=== PATIENT | female | born 1955 | race Caucasian/White ===

== ENCOUNTER 2021-06-09 11:09 | Outpatient (CLI) | payer BC | END 2021-06-09 11:10 | disposition critical access hospital (66) | LOC: EMS 11:09 | DX: R14.0 Abdominal distension (gaseous) (principal); R11.0 Nausea; R19.7 Diarrhea, unspecified; R42 Dizziness and giddiness; R55 Syncope and collapse | CPT/HCPCS: A0425; A0427 ==

== ENCOUNTER 2021-06-09 11:48 | Emergency (ER) | payer BC ==
[2021-06-09] MEDS ORDERED: SODIUM CHLORIDE 0.9% 1,000 ML IV STA (12:35)
[2021-06-09] MEDS ORDERED: HYDROmorphone 1 MG/ML CARPUJECT IVP STA (12:35)
[2021-06-09] MEDS ORDERED: ONDANSETRON 4 MG/2 ML VIAL IVP STA (12:35)
[2021-06-09 12:36] LABS: BASOPHILS # (AUTO) 0.1 10^3/uL (0.0-0.1); BASOPHILS % (AUTO) 0.7 %; EOSINOPHILS # (AUTO) 0.1 10^3/uL (0.0-0.7); EOSINOPHILS % (AUTO) 1.2 %; HCT - HEMATOCRIT 46.2 % (37.0-47.0); HGB - HEMOGLOBIN 15.7 g/dL (12.0-16.0); LYMPHOCYTES # (AUTO) 2.6 10^3/uL (1.5-3.5); LYMPHOCYTES % (AUTO) 21.9 %; MEAN CORPUSCULAR HEMOGLOBIN 30.3 pg (27.0-31.0); MEAN CORPUSCULAR VOLUME 89.2 fL (81.0-99.0); MEAN PLATELET VOLUME 10.8 fL (7.9-10.8); MONOCYTES # (AUTO) 1.2 10^3/uL (0.0-1.0); MONOCYTES % (AUTO) 9.6 %; NEUTROPHILS # (AUTO) 7.9 10^3/uL (1.5-6.6); PLT - PLATELET COUNT 215 10^3/uL (130-450); RED BLOOD COUNT 5.18 10^6/uL (4.20-5.40); RED CELL DISTRIBUTION WIDTH 12.9 % (12.0-15.0)
--- NOTE | 2021-06-09 12:38 | ED Physician Documentation ---
History of Present Illness - Stated complaint Stated Complaint: GLF/DIZZY - Chief complaint Chief Complaint: Neuro - Additonal information Additional information: 65-year-old female who has a history of diabetes as well as Crohn's disorder p resents the emergency department with 48 hours of uncontrolled diarrhea and vomiting/dry heaving. She reports that her was sick with similar but it lasted only 24 hours. She states that in the last 24 hours she has had 15 watery bowel movements. This morning she was on the toilet and she fainted. Her heard her fall. EMS was summoned and she was noted to be hypotensive in the field with a blood pressure of 55/31. They instituted some crystalloid and her blood pressure improved to 121/70. Her blood sugar was 101. Patient denies any recent antibiotics. Her output has been nonbloody. This does not feel like a typical Crohn's flare. Meds: Humira, Ozempic, Lantus, lispro, prednisone (burst for cervical radiculopathy), azathioprine Review of Systems Constitutional: denies: Fever, Chills Eyes: reports: Reviewed and negative Nose: reports: Reviewed and negative Throat: reports: Reviewed and negative Cardiac: reports: Reviewed and negative Respiratory: reports: Reviewed and negative GI: reports: Abdominal Pain, Nausea, Vomiting, Diarrhea. denies: Hematemesis, Bloody / black stool : reports: Reviewed and negative Skin: reports: Reviewed and negative Musculoskeletal: reports: Reviewed and negative Neurologic: reports: Reviewed and negative Psychiatric: reports: Reviewed and negative PD PAST MEDICAL HISTORY - Present Medications Home Medications: Ambulatory Orders Medication Instructions Recorded Confirmed Ciprofloxacin HCl 1 tablet PO BID 7 Days #14 tablet 06/09/21 metroNIDAZOLE [Flagyl] 500 mg PO BID 7 Days #14 tablet 06/09/21 - Allergies Allergies/Adverse Reactions: Allergies Allergy/AdvReac Type Severity Reaction Status Date / Time metformin Allergy Unknown Verified 06/09/21 11:56 Penicillins Allergy Unknown Verified 06/09/21 11:56 PD ED PE EXPANDED - General General: Alert, No acute distress - Cardiac Cardiac: Regular Rate, Radial strong equal, Pedal strong equal, Cap refill < 2 sec. No: Murmur Present - Respiratory Respiratory: Clear to ausultation noemi. No: Distress, Labored - Abdomen Abdomen: Normal Bowel sounds (hyperactive). No: Tender to palpation, Rebound, Guarding - Back Back: Normal exam. No: Soft tissue tenderness, CVA TTP right, CVA TTP left - Derm Derm: Normal color, Warm and dry. No: Rash - Extremities Extremities: Normal. No: Deformity, Tenderness - Neuro Neuro: Alert and Oriented X 3, CNII-XII intact - GCS Eye Opening: Spontaneous Motor: Obeys Commands Verbal: Oriented Total: 15 Results - Vitals Vitals: Vital Signs - 24 hr 06/09/21 06/09/21 06/09/21 11:56 12:09 12:30 Temperature 36.1 C L Heart Rate 69 74 74 Respiratory 16 18 12 Rate Blood Pressure 137/76 H 125/69 133/72 H O2 Saturation 99 98 100 06/09/21 06/09/21 06/09/21 13:30 14:00 14:30 Temperature Heart Rate 88 90 76 Respiratory 17 18 16 Rate Blood Pressure 160/73 H 155/74 H 143/69 H O2 Saturation 100 100 99 06/09/21 15:00 Temperature 36.6 C Heart Rate 81 Respiratory 18 Rate Blood Pressure 141/61 H O2 Saturation 99 Oxygen O2 Source Room air - EKG (time done) 1209 Rate: Rate (enter#) (71) Rhythm: NSR [place]: Normal Intervals: Normal RI, Prolonged QT QRS: LVH Ischemia: ST elevation c/w repol Compare to prior EKG: Old EKG unavailable Computer interpretation: Agree with computer - Labs Labs: Laboratory Tests 06/09/21 06/09/21 06/09/21 12:22 12:22 12:22 WBC 12.0 H RBC 5.18 Hgb 15.7 Hct 46.2 MCV 89.2 MCH 30.3 MCHC 34.0 RDW 12.9 Plt Count 215 MPV 10.8 Neut # (Auto) 7.9 H Lymph # (Auto) 2.6 [place] # (Auto) 1.2 H Eos # (Auto) 0.1 Baso # (Auto) 0.1 Absolute Nucleated RBC 0.00 Nucleated RBC % 0.0 Sodium 136 Potassium 4.4 Chloride 101 Carbon Dioxide 25 Anion Gap 10.0 BUN 18 Creatinine 0.7 Estimated GFR (MDRD) 84 L Glucose 161 H Lactic Acid Calcium 9.5 Total Bilirubin 0.8 AST 42 ALT 51 Alkaline Phosphatase 58 Troponin I High Sens 7.1 Total Protein 7.1 Albumin 4.0 Globulin 3.1 Albumin/Globulin Ratio 1.3 Lipase 39 Urine Color Urine Clarity Urine pH Ur Specific [place] Urine Protein Urine Glucose (UA) Urine Ketones Urine Occult Blood Urine Nitrite Urine Bilirubin Urine Urobilinogen Ur Leukocyte Esterase Urine RBC Urine WBC Ur Squamous Epith Cells Urine Bacteria Ur Microscopic Review Urine Culture Comments Stl C. diff Tox B Gene 06/09/21 06/09/21 06/09/21 12:36 12:51 12:51 WBC RBC Hgb Hct MCV MCH MCHC RDW Plt Count MPV Neut # (Auto) Lymph # (Auto) [place] # (Auto) Eos # (Auto) Baso # (Auto) Absolute Nucleated RBC Nucleated RBC % Sodium Potassium Chloride Carbon Dioxide Anion Gap BUN Creatinine Estimated GFR (MDRD) Glucose Lactic Acid 2.5 H Calcium Total Bilirubin AST ALT Alkaline Phosphatase Troponin I High Sens Total Protein Albumin Globulin Albumin/Globulin Ratio Lipase Urine Color YELLOW Urine Clarity CLEAR Urine pH 5.0 Ur Specific [place] >=1.030 H Urine Protein 30 H Urine Glucose (UA) >=1000 H Urine Ketones NEGATIVE Urine Occult Blood NEGATIVE Urine Nitrite NEGATIVE Urine Bilirubin NEGATIVE Urine Urobilinogen 0.2 (NORMAL) Ur Leukocyte Esterase NEGATIVE Urine RBC 6-10 H Urine WBC 4-5 Ur Squamous Epith Cells FEW Squamous Urine Bacteria Rare Ur Microscopic Review INDICATED Urine Culture Comments NOT INDICATED Stl C. diff Tox B Gene NEGATIVE 06/09/21 14:58 WBC RBC Hgb Hct MCV MCH MCHC RDW Plt Count MPV Neut # (Auto) Lymph # (Auto) [place] # (Auto) Eos # (Auto) Baso # (Auto) Absolute Nucleated RBC Nucleated RBC % Sodium Potassium Chloride Carbon Dioxide Anion Gap BUN Creatinine Estimated GFR (MDRD) Glucose Lactic Acid 2.4 H Calcium Total Bilirubin AST ALT Alkaline Phosphatase Troponin I High Sens Total Protein Albumin Globulin Albumin/Globulin Ratio Lipase Urine Color Urine Clarity Urine pH Ur Specific [place] Urine Protein Urine Glucose (UA) Urine Ketones Urine Occult Blood Urine Nitrite Urine Bilirubin Urine Urobilinogen Ur Leukocyte Esterase Urine RBC Urine WBC Ur Squamous Epith Cells Urine Bacteria Ur Microscopic Review Urine Culture Comments Stl C. diff Tox B Gene - Rads (name of study) CT abd/pelvis Radiology: Final report received (Mild colonic wall thickening involving the distal sigmoid colon suggesting mild segmental colitis. Etiology may be infection or inflammatory bowel disease. Terminal ileum is grossly normal. Hepatic steatosis.) PD MEDICAL DECISION MAKING - ED course Complexity details: reviewed old records, reviewed results, re-evaluated patient, considered differential, d/w patient ED course: 65-year-old female presents the emergency department with 2 days of uncontrolled vomiting and diarrhea. Her had been sick with similar but improved. Patient has had an estimated 15 watery bowel movements over the last 24 hours. This morning she was on the toilet and fainted. When EMS arrived she had a blood pressure in the 50s over 30s but after 200 mils of fluids blood pressure improved to 120/70. Her screening EKG is sinus rhythm high-sensitivity troponin is negative. On presentation to the ER she appeared well was not tachycardic or hypotensive. She is afebrile. Screening labs show a very mild leukocytosis of 12,000. Her electrolytes are nonactionable. Her initial lactate was 2.5. She was repleted with 2 L of IV fluids here in the emergency department she was then tolerating sips of clear liquids as well as ambulating in the underwood with ease. On reexam she had no abdominal tenderness. Her stool C. difficile is negative A CT of her abdomen suggest an inflammatory versus an infectious colitis. Patient will be started on Augmentin. I discussed the possibility of observation admission with mildly elevated lactate however patient prefers to be discharged home if she is feeling improved. Emergent return precautions were discussed. Departure - Departure Disposition: 01 Home, Self Care Clinical Impression: Nausea vomiting and diarrhea, Colitis Condition: Stable Record reviewed to determine appropriate education?: Yes Instructions: ED Gastroenteritis Report Pend Follow-Up: Armando Ellison MD [Primary Care Provider] - Prescriptions: Ciprofloxacin HCl 1 tablet PO BID 7 Days #14 tablet metroNIDAZOLE [Flagyl] 500 mg PO BID 7 Days #14 tablet Comments: Rosy you are seen in the ER today because you have had 48 hours of uncontrolled vomiting and diarrhea. Here in the emergency department you were given 2 L of IV fluids as well as some nausea medicine. You are now able to keep liquids down. The CT scan of your belly suggest that you have some inflammatory or infectious inflammation of your intestines. With your history of Crohn's disease I would like you to start the prescription for the Flagyl as well as the Cipro. Take twice daily for the next week. You would also benefit from taking a probiotic or eating a couple yogurt daily. If at any point you feel that your symptoms are worsening, You have suddenly severe abdominal pain, develop black or bloody stools, or have any fainting episodes and please return immediately to the ER. I do recommend over the next 24 hours that you take small sips of clear liquids such as broth, Pedialyte, water or juice. Then slowly advance your diet with bananas rice applesauce and toast. We did check your stool today for type of bacteria called C. difficile and reassuringly your negative. Please discuss this ED visit with your primary care doctor.
[2021-06-09 12:47] LABS: ALBUMIN/GLOBULIN RATIO 1.3 (1.0-2.2); BILIRUBIN,TOTAL 0.8 mg/dL (0.2-1.0); CALCIUM 9.5 mg/dL (8.5-10.3); CREATININE 0.7 mg/dL (0.4-1.0); POTASSIUM 4.4 mmol/L (3.5-5.0); TOTAL PROTEIN 7.1 g/dL (6.7-8.2)
[2021-06-09 13:03] LABS: BILIRUBIN,URINE NEGATIVE (NEGATIVE); GLUCOSE, URINE (UA) >=1000 mg/dL (NEGATIVE); KETONES,URINE (UA) NEGATIVE (NEGATIVE); LEUKOCYTE ESTERASE, URINE NEGATIVE (NEGATIVE); NITRITE,URINE NEGATIVE (NEGATIVE); OCCULT BLOOD,URINE NEGATIVE (NEGATIVE); PROTEIN,URINE 30 mg/dL (NEGATIVE); UROBILINOGEN,URINE 0.2 (NORMAL) E.U./dL (NORMAL)
[2021-06-09] MEDS ORDERED: IOPAMIDOL-300 100 ML VIAL ONE (13:12)
[2021-06-09 13:24] LABS: CLARITY,URINE CLEAR (CLEAR)
[2021-06-09 13:25] LABS: BACTERIA,URINE Rare /HPF (None Seen); SQUAMOUS EPITHELIAL CELL,UR FEW Squamous (<= Few)
[2021-06-09] MEDS ORDERED: IOPAMIDOL-300 100 ML VIAL IVP ONE (13:52)
--- NOTE | 2021-06-09 14:36 | CT Report ---
PROCEDURE: Abdomen/Pelvis W INDICATIONS: Uncontrolled Diarrhea, history of Crohn's CONTRAST: IV CONTRAST: Isovue 300 ml: 100 PO CONTRAST: Isovue 300 ml50 TECHNIQUE: After the administration of intravenous contrast, 5 mm thick sections acquired from the diaphragms to the symphysis. 5 mm thick coronal and sagittal reformats were acquired. For radiation dose reducti on, the following was used: automated exposure control, adjustment of mA and/or kV according to bud ent size. COMPARISON: None. FINDINGS: Image quality: Excellent. ABDOMEN: Lung bases: Lung bases are clear. Heart size is normal. Solid organs: Liver and spleen are normal in size and enhancement. Hepatic steatosis. Gallbladder i s normal. Biliary system is non dilated. Pancreas enhances normally. No adrenal nodules. Kidneys demonstrate normal size and enhancement. There multiple low-density cortical nodules in kidneys bila terally, most likely renal cysts. No renal stones or hydronephrosis. Peritoneum and bowel: Bowel loops demonstrate normal caliber. Mild short segment wall thickening inv olving the distal sigmoid colon. Terminal ileum is normal. Small bowel loops are normal in thickness. No free fluid or air. Nodes and vessels: No retroperitoneal or mesenteric adenopathy by size criteria. Aorta and inferior vena cava are normal in size. Atherosclerotic calcifications. Miscellaneous: No ventral hernias. PELVIS: Genitourinary: Bladder wall thickness is normal. Uterus is absent. Ovaries are not visualized. No p athological free fluid in the cul-de-sac or adnexa. Miscellaneous: No inguinal hernias or adenopathy. Bones: There is grade 1 anterolisthesis of L4 on L5. Moderate degenerative disc and facet disease in lumbar spine. No suspicious bony lesions. No vertebral body compression fractures. IMPRESSION: 1. Mild colonic wall thickening involving the distal sigmoid colon suggesting mild segmental colitis. Etiology may be infection or inflammatory bowel disease. Terminal ileum is grossly normal. 2. Hepatic steatosis. Reviewed by: Maday Reaves MD on 06/09/2021 2:34 PM PST Approved by: Maday Reaves MD on 06/09/2021 2:34 PM PST Station ID: [id number]
[2021-06-09 16:09] VITALS: BP 134/83
== END 2021-06-09 16:27 | disposition home or self-care (01) ==
LOC: EDUNIT# → ED 11:48
DX: K52.9 Noninfective gastroenteritis and colitis, unspecified (principal); K50.90 Crohn's disease, unspecified, without complications
CPT/HCPCS: 36415; 74177; 80053; 81001; 81599; 83605; 83690; 84484; 85025; 87493; 93005; 96360; 99284; Q9967; 81003; 87045; 87046; 87086

== ENCOUNTER 2021-06-24 14:13 | Outpatient (CLI) | payer BC | END 2021-06-24 14:14 | disposition home or self-care (01) | LOC: LAB 14:13 | PROVIDERS: ATTEND Internal Medicine | DX: R19.7 Diarrhea, unspecified (principal) | CPT/HCPCS: 83993; 87493 ==

== ENCOUNTER 2023-11-20 16:50 | Outpatient (CLI) | payer MEDICARE, OTHER | END 2023-11-20 23:59 | disposition critical access hospital (66) | LOC: EMS 16:50 | DX: R11.2 Nausea with vomiting, unspecified (principal); R10.84 Generalized abdominal pain; M54.9 Dorsalgia, unspecified; R23.1 Pallor; R61 Generalized hyperhidrosis; R10.817 Generalized abdominal tenderness; R09.89 Other specified symptoms and signs involving the circulatory and respiratory systems | CPT/HCPCS: A0425; A0427 ==

== ENCOUNTER 2023-11-20 17:28 | Inpatient (IN) | payer BC, MEDICARE, OTHER ==
--- NOTE | 2023-11-20 17:38 | ED Physician Documentation ---
PD HPI NVD - Stated complaint Stated Complaint: N/V/LOW BACK PX - History obtained from History obtained from: Patient - History of Present Illness Timing - onset: How many hours ago (06/22), Today Timing - duration: Hours (06/22) Timing - details: Abrupt onset (She states she felt okay yesterday and this morning. 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 It was not that hot she did not feel hypothermic. Soon after arriving home she started abruptly having nausea and vomiting general weakness and mild abd cramps.), Still present Associated symptoms: Fever, Loss of appetite Contributing factors: No: Sick contact, Bad food Improved by: No: Vomiting Similar symptoms before: Has not had sx before Recently seen: Not recently seen Review of Systems Constitutional: reports: Fever Nose: denies: Rhinorrhea / runny nose, Congestion Throat: denies: Sore throat Respiratory: denies: Cough GI: reports: Abdominal Pain, Nausea, Vomiting. denies: Diarrhea Neurologic: denies: Altered mental status, Headache PD PAST MEDICAL HISTORY - Past Medical History Endocrine/Autoimmune: None GI: Crohn's disease DATA CONTROL CLERK: None : None - Present Medications Home Medications: Ambulatory Orders Medication Instructions Recorded Confirmed Adalimumab [Humira Pen] 40 mg SUBQ Q14D 11/20/23 11/20/23 Famotidine [Pepcid] 20 mg PO DAILY 11/20/23 11/20/23 Gabapentin [Neurontin] 100 mg PO BID 11/20/23 11/20/23 Gabapentin [Neurontin] 300 mg PO HS 11/20/23 11/20/23 Lisinopril [Zestril] 40 mg PO DAILY 11/20/23 11/20/23 Pravastatin [Pravachol] 40 mg PO DAILY 11/20/23 11/20/23 Tizanidine HCl 2 mg PO HS PRN 11/20/23 11/20/23 oxyBUTYnin chloride [Oxybutynin 5 mg PO DAILY 11/20/23 11/20/23 Chloride] - Allergies Allergies/Adverse Reactions: Allergies Allergy/AdvReac Type Severity Reaction Status Date / Time metformin Allergy Unknown Verified 11/20/23 17:30 Penicillins Allergy Unknown Verified 11/20/23 17:30 prednisone Allergy Unknown Verified 11/20/23 17:30 PD ED PE NORMAL - Vitals Vital signs reviewed: Yes - General General: Alert and oriented X 3, Well developed/nourished, Other (apperas uncomfortable. Holding emesis bag, dry heaving.) - Neck Neck: Supple, no meningeal sign, No adenopathy - Abdomen Abdomen: Soft, Non distended, No organomegaly, Other (tender epigastric area without percussion nor rebound tenderness. ). No: Normal bowel sounds (decreased) - Derm Derm: Normal color, Warm and dry, No rash - Neuro Neuro: Alert and oriented X 3 Results - Vitals Vitals: Vital Signs - 24 hr 11/20/23 11/20/23 11/20/23 17:33 18:16 18:31 Temperature 39.0 C H 38.5 C H Heart Rate 114 H 115 H Respiratory 26 H 29 H Rate Blood Pressure 161/75 H 161/75 H O2 Saturation 90 L 91 L 11/20/23 11/20/23 11/20/23 18:57 19:30 20:30 Temperature 38.5 C H 37.4 C Heart Rate 116 H 110 H 101 H Respiratory 26 H 22 20 Rate Blood Pressure 115/60 165/74 H 129/61 O2 Saturation 93 95 95 Oxygen O2 Source Room air - Labs Labs: Laboratory Tests 11/20/23 11/20/23 11/20/23 17:45 18:02 18:02 WBC 9.1 RBC 4.77 Hgb 14.1 Hct 41.9 MCV 87.8 MCH 29.6 MCHC 33.7 RDW 12.5 Plt Count 152 MPV 11.1 H Neut # (Auto) 8.1 H Lymph # (Auto) 0.6 L [place] # (Auto) 0.3 Eos # (Auto) 0.0 Baso # (Auto) 0.0 Absolute Nucleated RBC 0.00 Nucleated RBC % 0.0 Sodium 136 Potassium 4.0 Chloride 103 Carbon Dioxide 22 Anion Gap 11.0 BUN 19 Creatinine 0.6 Estimated GFR (MDRD) 100 Glucose 254 H Lactic Acid Calcium 9.7 Magnesium 1.3 L Total Bilirubin 0.7 AST 51 H ALT 64 H Alkaline Phosphatase 126 H C-Reactive Protein 3.2 H Total Protein 7.2 Albumin 4.3 Globulin 2.9 Albumin/Globulin Ratio 1.5 Lipase 10 L Urine Color YELLOW Urine Clarity CLOUDY Urine pH 6.0 Ur Specific [place] 1.015 Urine Protein 30 H Urine Glucose (UA) >=1000 H Urine Ketones TRACE Urine Occult Blood TRACE-LYSE Urine Nitrite POSITIVE H Urine Bilirubin NEGATIVE Urine Urobilinogen 0.2 (NORMAL) Ur Leukocyte Esterase NEGATIVE Urine RBC 0-5 Urine WBC 6-10 H Ur Squamous Epith Cells FEW Squamous Urine Bacteria Many H Ur Microscopic Review INDICATED Urine Culture Comments INDICATED Nasal Adenovirus (PCR) Nasal B. parapertussis DNA (PCR) Nasal Coronavir 229E PCR Nasal Coronavir HKU1 PCR Nasal Coronavir NL63 PCR Nasal Coronavir OC43 PCR Nasal Enterovir/Rhinovir PCR Nasal Influenza B PCR Nasal Influenza A PCR Nasal Parainfluen 1 PCR Nasal Parainfluen 2 PCR Nasal Parainfluen 3 PCR Nasal Parainfluen 4 PCR Nasal RSV (PCR) Nasal B.pertussis DNA PCR Nasal C.pneumoniae (PCR) Ze Human Metapneumo PCR Nasal M.pneumoniae (PCR) Nasal SARS-CoV-2 (PCR) 11/20/23 11/20/23 18:02 18:10 WBC RBC Hgb Hct MCV MCH MCHC RDW Plt Count MPV Neut # (Auto) Lymph # (Auto) [place] # (Auto) Eos # (Auto) Baso # (Auto) Absolute Nucleated RBC Nucleated RBC % Sodium Potassium Chloride Carbon Dioxide Anion Gap BUN Creatinine Estimated GFR (MDRD) Glucose Lactic Acid 3.4 H* Calcium Magnesium Total Bilirubin AST ALT Alkaline Phosphatase C-Reactive Protein Total Protein Albumin Globulin Albumin/Globulin Ratio Lipase Urine Color Urine Clarity Urine pH Ur Specific [place] Urine Protein Urine Glucose (UA) Urine Ketones Urine Occult Blood Urine Nitrite Urine Bilirubin Urine Urobilinogen Ur Leukocyte Esterase Urine RBC Urine WBC Ur Squamous Epith Cells Urine Bacteria Ur Microscopic Review Urine Culture Comments Nasal Adenovirus (PCR) NOT DETECTED Nasal B. parapertussis DNA (PCR) NOT DETECTED Nasal Coronavir 229E PCR NOT DETECTED Nasal Coronavir HKU1 PCR NOT DETECTED Nasal Coronavir NL63 PCR NOT DETECTED Nasal Coronavir OC43 PCR NOT DETECTED Nasal Enterovir/Rhinovir PCR NOT DETECTED Nasal Influenza B PCR NOT DETECTED Nasal Influenza A PCR NOT DETECTED Nasal Parainfluen 1 PCR NOT DETECTED Nasal Parainfluen 2 PCR NOT DETECTED Nasal Parainfluen 3 PCR NOT DETECTED Nasal Parainfluen 4 PCR NOT DETECTED Nasal RSV (PCR) NOT DETECTED Nasal B.pertussis DNA PCR NOT DETECTED Nasal C.pneumoniae (PCR) NOT DETECTED Ze Human Metapneumo PCR NOT DETECTED Nasal M.pneumoniae (PCR) NOT DETECTED Nasal SARS-CoV-2 (PCR) NOT DETECTED PD Medical Decision Making - ED course Complexity details: considered differential, d/w patient ED course: Quite abrupt onset of malaise, body aches, fever just at 4:00 this afternoon. It felt okay earlier in the day. Is having nausea and vomiting. Denies abdominal pain per se. Having urgency now for possibly diarrhea. Had not noticed any UTI symptoms though was having some frequency the last couple of days but no dysuria. No contact with flu or COVID per se. Not having upper respiratory symptoms. She does appear well sick promptly today. We started an IV and were given medications for fever and pains as well as nausea. Her temperature was 39.0. Preliminary labs are showing a normal white count but she does have an elevated lactate of 3.4. Urinalysis is showing signs of urinary tract infection and that could account for nausea fever and back pain. Flu test is still pending. Am getting a chest x-ray to look for other sources of infection. She was not alexander ving localized abdominal tenderness but did have some upper crampiness. Potentially could consider CT of the abdomen. At this point I would await the respiratory viral panel test. If positive that may account for symptoms better. If negative then CT abdomen may be appropriate to look for obstructive patterns or stones in the setting of UTI with such high impromptu fever.
[2023-11-20 17:54] LABS: BILIRUBIN,URINE NEGATIVE (NEGATIVE); GLUCOSE, URINE (UA) >=1000 mg/dL (NEGATIVE); KETONES,URINE (UA) TRACE mg/dL (NEGATIVE); LEUKOCYTE ESTERASE, URINE NEGATIVE (NEGATIVE); NITRITE,URINE POSITIVE (NEGATIVE); OCCULT BLOOD,URINE TRACE-LYSE (NEGATIVE); PROTEIN,URINE 30 mg/dL (NEGATIVE); UROBILINOGEN,URINE 0.2 (NORMAL) E.U./dL (NORMAL)
[2023-11-20 17:57] LABS: CLARITY,URINE CLOUDY (CLEAR)
[2023-11-20 17:58] LABS: BACTERIA,URINE Many /HPF (None Seen); RBC,URINE 0-5 /HPF (0-5); SQUAMOUS EPITHELIAL CELL,UR FEW Squamous (<= Few)
[2023-11-20] MEDS: ACETAMINOPHEN 500 MG TABLET PO STA (18:01)
[2023-11-20] MEDS: SODIUM CHLORIDE 0.9% 1,000 ML IV STA ×2 (18:02→18:54)
[2023-11-20] MEDS: ONDANSETRON 4 MG/2 ML VIAL IVP STA (18:02)
[2023-11-20] MEDS: KETOROLAC 15 MG/ML VIAL IVP STA (18:03)
[2023-11-20] MEDS: cefTRIAXone 1 GM VIAL IVP STA (18:13)
[2023-11-20 18:16] LABS: BASOPHILS % (AUTO) 0.3 %; EOSINOPHILS % (AUTO) 0.2 %; HCT - HEMATOCRIT 41.9 % (37.0-47.0); HGB - HEMOGLOBIN 14.1 g/dL (12.0-16.0); LYMPHOCYTES # (AUTO) 0.6 10^3/uL (1.5-3.5); LYMPHOCYTES % (AUTO) 6.9 %; MEAN CORPUSCULAR HEMOGLOBIN 29.6 pg (27.0-31.0); MEAN CORPUSCULAR HGB CONC 33.7 g/dL (32.0-36.0); MEAN CORPUSCULAR VOLUME 87.8 fL (81.0-99.0); MEAN PLATELET VOLUME 11.1 fL (7.9-10.8); MONOCYTES # (AUTO) 0.3 10^3/uL (0.0-1.0); MONOCYTES % (AUTO) 3.6 %; NEUTROPHILS # (AUTO) 8.1 10^3/uL (1.5-6.6); NEUTROPHILS % (AUTO) 88.7 %; PLT - PLATELET COUNT 152 10^3/uL (130-450); RED BLOOD COUNT 4.77 10^6/uL (4.20-5.40); RED CELL DISTRIBUTION WIDTH 12.5 % (12.0-15.0); WHITE BLOOD COUNT 9.1 x10^3/uL (4.8-10.8)
[2023-11-20 18:31] LABS: ALBUMIN 4.3 g/dL (3.2-5.5); ALBUMIN/GLOBULIN RATIO 1.5 (1.0-2.2); BILIRUBIN,TOTAL 0.7 mg/dL (0.2-1.0); CALCIUM 9.7 mg/dL (8.5-10.3); CREATININE 0.6 mg/dL (0.6-1.3); CRP - C-REACTIVE PROTEIN 3.2 mg/dL (<0.5); MAGNESIUM 1.3 mg/dL (1.7-2.3); TOTAL PROTEIN 7.2 g/dL (6.4-8.9)
[2023-11-20] MEDS: MAGNESIUM SULFATE 2 GRAM 2 GM/50 ML BAG IV ONE (18:48)
[2023-11-20 19:12] LABS: B. PARAPERTUSSIS- RESP PCR PAN NOT DETECTED; B. PERTUSSIS- RESP PCR PANEL NOT DETECTED; C. PNEUMONIAE- RESP PCR PANEL NOT DETECTED; CORONAVIRUS 229E-RESP PCR NOT DETECTED; CORONAVIRUS HKU1-RESP PCR NOT DETECTED; CORONAVIRUS NL63-RESP PCR NOT DETECTED; CORONAVIRUS OC43-RESP PCR NOT DETECTED; HUMAN METAPNEUMOVIRUS NOT DETECTED; INFLUENZA A- RESP PCR PANEL NOT DETECTED; INFLUENZA B - RESP PCR PANEL NOT DETECTED; M. PNEUMONIAE- RESP PCR PANEL NOT DETECTED; PARAINFLUENZA VIRUS 1 NOT DETECTED; PARAINFLUENZA VIRUS 2 NOT DETECTED; PARAINFLUENZA VIRUS 3 NOT DETECTED; PARAINFLUENZA VIRUS 4 NOT DETECTED; RHINOVIRUS/ENTEROVIRUS NOT DETECTED; RSV- RESP PCR PANEL NOT DETECTED; SARS-CoV-2 -RESP PCR PANEL NOT DETECTED
--- NOTE | 2023-11-20 19:45 | XRAY Report ---
PROCEDURE: Chest 1V INDICATIONS: fever TECHNIQUE: One view of the chest was acquired. COMPARISON: None. FINDINGS: Surgical changes and devices: None. Lungs and pleura: No pleural effusions or pneumothorax. Lungs are clear. Mediastinum: Mediastinal contours appear normal. Heart size is normal. Bones and chest wall: No suspicious bony lesions. Overlying soft tissues appear unremarkable. IMPRESSION: No acute cardiopulmonary process. Reviewed by: Kanwal Mclean MD on 11/20/2023 7:44 PM PDT Approved by: Kanwal Mclean MD on 11/20/2023 7:44 PM PDT Station ID: [id number]
[2023-11-20] MEDS ORDERED: iohexoL-300 100 ML VIAL ONE (20:31)
[2023-11-20] MEDS: iohexoL-300 100 ML VIAL IVP ONE (21:06)
--- NOTE | 2023-11-20 21:21 | CT Report ---
PROCEDURE: Abdomen/Pelvis W INDICATIONS: UTI, back pain, high fever CONTRAST: 100 ML OMNI 300 TECHNIQUE: After the administration of intravenous contrast, a CT scan of the abdomen and pelvis was performed. Images were recorded and evaluated at appropriate window settings. Reformats: coronal and sagittal. F or radiation dose reduction, the following was used: automated exposure control, adjustment of mA and /or kV according to patient size. COMPARISON: 06/09/2021 FINDINGS: Image quality: Diagnostic. Lower chest: Linear atelectasis versus scarring within the bilateral lower lobes and lingula. Liver: No solid mass. Decreased attenuation, consistent with hepatic steatosis. Gallbladder: No radiopaque stones or wall thickening. Biliary tree: No intrahepatic or extrahepatic dilation, accounting for age. Spleen: No splenomegaly. Pancreas: No pancreatic ductal dilation. Adrenals: No adrenal nodule. Kidneys and ureters: No hydronephrosis. No renal cystic lesion which requires follow up. No solid mas s. Simple appearing renal cysts are mildly increased in size compared to prior. Stomach, bowel and peritoneum: No gastric or small bowel dilation. No abnormal wall thickening. No pa thologic free fluid. Lymph nodes: No central or retroperitoneal adenopathy. Vessels: No infrarenal aortic aneurysm. Atherosclerotic vascular calcifications. Patent portal vein. PELVIS Reproductive organs: Hysterectomy. Laxity of the pelvic floor, concerning for prolapse of both the re ctum and urinary bladder. Bladder: No abnormal wall thickening, accounting for underdistention. Pelvic lymph nodes: No pelvic adenopathy by size criteria. Bones: No aggressive osseous abnormality. Degenerative changes of the spine. Grade I anterolisthesis of L4 on L5. Other: No significant ventral or inguinal hernia. IMPRESSION: 1.Laxity of the pelvic floor, concerning for prolapse of the rectum and urinary bladder. Recommend cl inical correlation. 2.Otherwise, no acute findings within the abdomen or pelvis. No evidence of pyelonephritis. Urinary b ladder wall appears within normal limits. 3.Hepatic Steatosis . Reviewed by: Sajan Douglas MD on 11/20/2023 9:20 PM PDT Approved by: Sajan Douglas MD on 11/20/2023 9:20 PM PDT Station ID: [id number]
--- NOTE | 2023-11-20 22:28 | ED Physician Documentation ---
ED Addendum - Addendum Addendum: 11/20/23 22:25 Patient endorsed to me by Dr. Reynoso at 7 [address] shift change awaiting CT results and chest x-ray. Both appear to be negative however patient persistently tachypneic, tachycardic with mild unexplained hypoxia s/p IVF. Her RVP is negative but perhaps a false negative. She does have UTI on u/a and endorses increased frequency. plan to admit for pyelonephritis. Impression 1. uti 2. sepsis 3. hypoxia 4. hyperglycemia Disposition admit Condition fair 11/20/23 22:39
--- NOTE | 2023-11-20 22:34 | HISTORY & PHYSICAL EXAMINATION ---
Chief Complaint - Chief Complaint Chief Complaint: fevers, chills, nausea, vomiting History of Present Illness - History of Present Illness HPI Comment/Other: pt with fevers, chills, nausea, vomiting that developed within last 24 hours. denies inciting factors. also with loose stools. denies hematuria or blood in stool. no abdominal trauma. denies recent travel or intercourse. h/o uti but never like this. reports some transient sob. no chest pain. History - Past Medical History Cardiovascular: reports: Hypertension, High cholesterol Respiratory: reports: None Neuro: reports: None Endocrine/Autoimmune: reports: None GI: reports: Crohn's disease PC TECH: reports: None : reports: None HEENT: reports: None Psych: reports: None Musculoskeletal: reports: Chronic back pain Derm: reports: None MRSA Hx?: No - POLST Patient has POLST: No Meds/Allgy - Home Medications Home Medications: Ambulatory Orders Medication Instructions Recorded Confirmed Adalimumab [Humira Pen] 40 mg SUBQ Q14D 11/20/23 11/20/23 Famotidine [Pepcid] 20 mg PO DAILY 11/20/23 11/20/23 Gabapentin [Neurontin] 100 mg PO BID 11/20/23 11/20/23 Gabapentin [Neurontin] 300 mg PO HS 11/20/23 11/20/23 Insulin Glargine,Hum.rec.anlog 70 unit SUBQ BID 11/20/23 11/20/23 [Basaglar Kwikpen U-100] Insulin Lispro [Humalog] See Rx Instructions .ROUTE .COMPLEX 11/20/23 11/20/23 Lisinopril [Zestril] 40 mg PO DAILY 11/20/23 11/20/23 Rosuvastatin Calcium 20 mg PO DAILY 11/20/23 11/20/23 Tizanidine HCl 2 mg PO HS PRN 11/20/23 11/20/23 oxyBUTYnin chloride [Oxybutynin 5 mg PO DAILY 11/20/23 11/20/23 Chloride] - Allergies Allergies/Adverse Reactions: Allergies Allergy/AdvReac Type Severity Reaction Status Date / Time metformin Allergy Unknown Verified 11/20/23 17:30 Penicillins Allergy Unknown Verified 11/20/23 17:30 prednisone Allergy Unknown Verified 11/20/23 17:30 Review of Systems - Other Findings Other Findings: 14 pt review done with positives per hpi; all others reviewed as negative Exam - Vital Signs Vital Signs: Vital Signs x48h Temp Pulse Resp BP Pulse Ox 11/20/23 22:20 37.5 C 11/20/23 22:00 109 H 23 124/70 93 11/20/23 20:30 101 H 20 129/61 95 11/20/23 19:30 37.4 C 110 H 22 165/74 H 95 11/20/23 18:57 38.5 C H 116 H 26 H 115/60 93 11/20/23 18:31 38.5 C H 11/20/23 18:16 115 H 29 H 161/75 H 91 L 11/20/23 17:33 39.0 C H 114 H 26 H 161/75 H 90 L - Physical Exam Comments/Other: gen - aaox3, nadparis - eomi, nc/at heart - per ed charting lungs - per ed charting abd - per ed charting msk - no acute trauma noted or reported neuro - aaox3, cooperative with questions Conclusion/Plan - Lab Results Fish Bones: 11/20/23 23:07 11/20/23 23:07 - Other Other Results/Comments: pt with - - sepsis in setting of pyelonephritis (below) check lactic acid fevers, chills, tachycardia, infection rocephin, IVF - pyelonephritis contributory to above rocephin, ivf, f/u cultures - t2dm with hyperglycemia exacerbated d/t above ssi, check a1c diabetic diet - generalized malaise d/t above supportive mgmt f/u labs, cultures, replete electrolytes further orders per clinical course
[2023-11-20] MEDS ORDERED: SODIUM CHLORIDE FLUSH 0.9% 10 ML SYRINGE IVP PRN (22:39)
[2023-11-20] MEDS ORDERED: oxyCODONE 5 MG TABLET PO PRN (22:39)
[2023-11-20] MEDS ORDERED: MORPHINE 2 MG/ML CARPUJECT IVP PRN (22:39)
[2023-11-20 23:17] LABS: BASOPHILS # (AUTO) 0.1 10^3/uL (0.0-0.1); BASOPHILS % (AUTO) 0.3 %; EOSINOPHILS % (AUTO) 0.1 %; HCT - HEMATOCRIT 37.5 % (37.0-47.0); HGB - HEMOGLOBIN 12.7 g/dL (12.0-16.0); LYMPHOCYTES # (AUTO) 0.6 10^3/uL (1.5-3.5); LYMPHOCYTES % (AUTO) 3.1 %; MEAN CORPUSCULAR HEMOGLOBIN 29.5 pg (27.0-31.0); MEAN CORPUSCULAR HGB CONC 33.9 g/dL (32.0-36.0); MEAN CORPUSCULAR VOLUME 87.2 fL (81.0-99.0); MEAN PLATELET VOLUME 11.3 fL (7.9-10.8); MONOCYTES # (AUTO) 1.4 10^3/uL (0.0-1.0); MONOCYTES % (AUTO) 7.5 %; NEUTROPHILS # (AUTO) 16.5 10^3/uL (1.5-6.6); NEUTROPHILS % (AUTO) 88.6 %; PLT - PLATELET COUNT 126 10^3/uL (130-450); RED CELL DISTRIBUTION WIDTH 12.8 % (12.0-15.0); WHITE BLOOD COUNT 18.6 x10^3/uL (4.8-10.8)
[2023-11-20 23:27] LABS: CHOL/HDL RATIO 2.4 (<4.4); CHOLESTEROL 123 mg/dL; HDL CHOLESTEROL 52 mg/dL; LDL CHOLESTEROL,CALCULATED 57 mg/dL; LDL/HDL RATIO 1.1 (<4.4); TRIGLYCERIDES 70 mg/dL (48-352); VLDL CHOLESTEROL 14 mg/dL
[2023-11-20 23:40] LABS: THYROID STIMULATING HORMONE 0.52 uIU/mL (0.34-5.60)
[2023-11-21 00:09] LABS: ALBUMIN 3.8 g/dL (3.2-5.5); ALBUMIN/GLOBULIN RATIO 1.5 (1.0-2.2); BILIRUBIN,TOTAL 0.4 mg/dL (0.2-1.0); CALCIUM 9.1 mg/dL (8.5-10.3); CREATININE 0.6 mg/dL (0.6-1.3); POTASSIUM 3.3 mmol/L (3.5-4.5); TOTAL PROTEIN 6.4 g/dL (6.4-8.9)
[2023-11-21] MEDS: SODIUM CHLORIDE FLUSH 0.9% 10 ML SYRINGE IVP SCH (00:43)
[2023-11-21] MEDS: LACTATED RINGERS 1,000 ML IV SCH (00:43)
[2023-11-21] MEDS: ADALIMUMAB 40 MG/0.8 ML SUBQ SCH (00:49)
[2023-11-21] MEDS: ACETAMINOPHEN 325 MG TABLET PO PRN (01:13)
[2023-11-21 04:45] LABS: BASOPHILS # (AUTO) 0.1 10^3/uL (0.0-0.1); BASOPHILS % (AUTO) 0.4 %; EOSINOPHILS % (AUTO) 0.2 %; HGB - HEMOGLOBIN 11.7 g/dL (12.0-16.0); LYMPHOCYTES # (AUTO) 1.3 10^3/uL (1.5-3.5); LYMPHOCYTES % (AUTO) 7.3 %; MEAN CORPUSCULAR HEMOGLOBIN 30.2 pg (27.0-31.0); MEAN CORPUSCULAR HGB CONC 34.4 g/dL (32.0-36.0); MEAN CORPUSCULAR VOLUME 87.9 fL (81.0-99.0); MEAN PLATELET VOLUME 11.3 fL (7.9-10.8); MONOCYTES # (AUTO) 1.1 10^3/uL (0.0-1.0); MONOCYTES % (AUTO) 6.1 %; NEUTROPHILS # (AUTO) 15.4 10^3/uL (1.5-6.6); NEUTROPHILS % (AUTO) 85.4 %; PLT - PLATELET COUNT 111 10^3/uL (130-450); RED BLOOD COUNT 3.87 10^6/uL (4.20-5.40)
[2023-11-21 05:15] LABS: ALBUMIN 3.6 g/dL (3.2-5.5); ALBUMIN/GLOBULIN RATIO 1.8 (1.0-2.2); BILIRUBIN,TOTAL 0.5 mg/dL (0.2-1.0); CALCIUM 8.7 mg/dL (8.5-10.3); CREATININE 0.5 mg/dL (0.6-1.3); POTASSIUM 3.7 mmol/L (3.5-4.5); TOTAL PROTEIN 5.6 g/dL (6.4-8.9)
[2023-11-21] MEDS: ONDANSETRON ODT 4 MG TABLET TL PRN (05:16)
[2023-11-21] MEDS: GABAPENTIN 300 MG CAPSULE PO ONE (06:36)
[2023-11-21] MEDS ORDERED: TIZANIDINE 2 MG PO PRN (07:17)
[2023-11-21] MEDS ORDERED: tiZANidine 4 MG TABLET PO PRN (07:19)
[2023-11-21] MEDS: INSULIN LISPRO 300 UNIT/3 ML PEN SUBQ SCH (07:48)
[2023-11-21] MEDS: IBUPROFEN 400 MG TABLET PO PRN (07:57)
[2023-11-21] MEDS ORDERED: INSULIN LISPRO 300 UNIT/3 ML PEN SUBQ SCH (08:00)
[2023-11-21] MEDS: cefTRIAXone 2 GM in SODIUM CHLORIDE 0.9% MINIBAG 100 ML IV SCH (08:54)
[2023-11-21] MEDS: GABAPENTIN 100 MG CAPSULE PO SCH ×2 (08:55→16:36)
[2023-11-21] MEDS: SOLIFENACIN SUCCINATE 5 MG TABLET PO SCH (08:55)
[2023-11-21] MEDS: ENOXAPARIN 40 MG/0.4 ML SYRINGE SUBQ SCH (08:55)
[2023-11-21] MEDS: lisinopriL 20 MG TABLET PO SCH (08:55)
[2023-11-21] MEDS: FAMOTIDINE 20 MG TABLET PO SCH (08:55)
[2023-11-21] MEDS ORDERED: NON FORMULARY MED (Lisinopril [Zestril] 40 MG Tablet) PO SCH (09:00)
[2023-11-21] MEDS ORDERED: PRAVASTATIN 40 MG TABLET PO SCH (09:00)
[2023-11-21] MEDS ORDERED: NON FORMULARY MED (Rosuvastatin Calcium [Rosuvastatin Calcium] 20 MG Tablet) PO SCH (09:00)
[2023-11-21 09:48] LABS: ESTIMATED AVERAGE GLUCOSE 252 mg/dL (70-100); HEMOGLOBIN A1c% 10.4 % (4.27-6.07)
--- NOTE | 2023-11-21 11:01 | PROVIDER PROGRESS NOTE ---
Assessment/Plan - Problem List (1) Bacteremia due to Klebsiella pneumoniae Assessment/Plan: --Started on IV ceftriaxone 2 g daily. Will need a total of 14 days of antibiotics. --Cultures pending. --Etiology is believed to be the urine. (2) Sepsis Assessment/Plan: --As above. (3) UTI (urinary tract infection) Assessment/Plan: --Awaiting final urine culture. Continue IV antibiotics as above. --No evidence of pyelonephritis on CT. She is not having any flank pain. (4) Type 2 diabetes mellitus Assessment/Plan: --Continue SSI. (5) Arthritis Assessment/Plan: --Deformities of L4/L5. Started on her home tylenol, ibuprofen, gabapentin regimen. - Current Meds Current Meds: Current Medications Generic Name Dose Route Start Last Admin Trade Name Freq PRN Reason Stop Dose Admin Acetaminophen 650 mg 11/20/23 22:39 11/21/23 07:57 Acetaminophen 325 Mg Tablet PO 650 mg Q6H PRN Administration Pain 1 to 4, or Fever Enoxaparin Sodium 40 mg 11/21/23 09:00 11/21/23 08:55 Enoxaparin 40 Mg/0.4 Ml Syringe SUBQ 40 mg DAILY MOUNIKA Administration Famotidine 20 mg 11/21/23 09:00 11/21/23 08:55 Famotidine 20 Mg Tablet PO 20 mg DAILY MOUNIKA Administration Gabapentin 100 mg 11/21/23 09:00 11/21/23 08:55 Gabapentin 100 Mg Capsule PO 100 mg BID MOUNIKA Administration Lactated Ringer's 1,000 mls @ 100 mls/hr 11/20/23 23:00 11/21/23 00:43 Lr IV 100 mls/hr .Q10H MOUNIKA Administration Ceftriaxone Sodium 2 gm/ 100 mls @ 200 mls/hr 11/21/23 09:00 11/21/23 08:54 Sodium Chloride IV 200 mls/hr DAILY MOUNIKA Administration Insulin Human Lispro 3 - 11 unit 11/21/23 08:00 11/21/23 07:48 Insulin Lispro 300 Unit/3 Ml Pen SUBQ Not Given 0800,1200,1700,2100 MOUNIKA Protocol Lisinopril 40 mg 11/21/23 09:00 11/21/23 08:55 Lisinopril 20 Mg Tablet PO 40 mg DAILY MOUNIKA Administration Ondansetron HCl 4 mg 11/20/23 22:39 11/21/23 05:16 Ondansetron Odt 4 Mg Tablet TL 4 mg Q6HR PRN Administration Nausea / Vomiting Sodium Chloride 10 ml 11/21/23 01:00 11/21/23 08:55 Sodium Chloride Flush 0.9% 10 Ml Syringe IVP 10 ml 0100,0900,1700 MOUNIKA Administration Solifenacin 5 mg 11/21/23 09:00 11/21/23 08:55 Solifenacin Succinate 5 Mg Tablet PO 5 mg DAILY MOUNIKA Administration - Lab Result Fish Bone Diagrams: 11/21/23 04:20 11/21/23 04:20 - Additional Planning My Orders: My Active Orders 11/21/23 07:19 tiZANidine [Zanaflex] 2 mg PO HS PRN 11/21/23 09:00 cefTRIAXone [Rocephin] 2 gm Sodium Chloride 0.9% Minibag [Normal Saline 0.9% Minibag] 100 ml IV DAILY 11/21/23 14:00 Ibuprofen [Motrin] 200 mg PO TID 11/21/23 21:00 Gabapentin [Neurontin] 300 mg PO HS 11/22/23 05:00 BMP - BASIC METABOLIC PANEL [CHEM] DAILYLAB CBC [CBC - COMP BLD CT W/AUTO DIFF] [HEME] DAILYLAB 11/22/23 09:00 Blood Culture [CULTURE, BLOOD #2] [RM] DAILY 11/23/23 05:00 BMP - BASIC METABOLIC PANEL [CHEM] DAILYLAB CBC [CBC - COMP BLD CT W/AUTO DIFF] [HEME] DAILYLAB 11/24/23 05:00 BMP - BASIC METABOLIC PANEL [CHEM] DAILYLAB CBC [CBC - COMP BLD CT W/AUTO DIFF] [HEME] DAILYLAB 11/25/23 05:00 BMP - BASIC METABOLIC PANEL [CHEM] DAILYLAB CBC [CBC - COMP BLD CT W/AUTO DIFF] [HEME] DAILYLAB 11/26/23 05:00 BMP - BASIC METABOLIC PANEL [CHEM] DAILYLAB CBC [CBC - COMP BLD CT W/AUTO DIFF] [HEME] DAILYLAB Subjective - Subjective Patient Reports: Feeling Better, Resting Comfortably, No Complaints Objective Vital Signs: Vital Signs - 24 hr 11/20/23 11/20/23 11/20/23 17:33 18:16 18:31 Temperature 39.0 C H 38.5 C H Heart Rate 114 H 115 H Heart Rate [ Monitoring electrodes] Respiratory 26 H 29 H Rate Blood Pressure 161/75 H 161/75 H Blood Pressure [Right Brachial artery] O2 Saturation 90 L 91 L 11/20/23 11/20/23 11/20/23 18:57 19:30 20:30 Temperature 38.5 C H 37.4 C Heart Rate 116 H 110 H 101 H Heart Rate [ Monitoring electrodes] Respiratory 26 H 22 20 Rate Blood Pressure 115/60 165/74 H 129/61 Blood Pressure [Right Brachial artery] O2 Saturation 93 95 95 11/20/23 11/20/23 11/20/23 22:00 22:20 23:00 Temperature 37.5 C Heart Rate 109 H 102 H Heart Rate [ Monitoring electrodes] Respiratory 23 21 Rate Blood Pressure 124/70 115/67 Blood Pressure [Right Brachial artery] O2 Saturation 93 94 11/21/23 11/21/23 11/21/23 00:00 07:50 10:15 Temperature 36.7 C 37.6 C Heart Rate 93 Heart Rate [ 100 106 H Monitoring electrodes] Respiratory 18 20 18 Rate Blood Pressure 110/45 L Blood Pressure 142/76 H 153/78 H 114/62 [Right Brachial artery] O2 Saturation 95 91 L Oxygen O2 Source Room air I&O (Last 24 Hrs): Intake and Output Totals x24h 11/19/23 11/20/23 11/21/23 23:59 23:59 23:59 Intake Total 2050 440 Output Total 200 Balance 0 240 General: Alert, Oriented x3, Cooperative, No acute distress Neuro: Alert, CN 2-12 Grossly Intact, Oriented Times 3 Cardiovascular: Regular rate, Normal S1, Normal S2, No murmurs Respiratory: Chest non-tender, No respiratory distress, Breath sounds nml Abdomen: Normal bowel sounds, Soft, No tenderness, No hepatospenomegaly, No masses - Results Results: Laboratory Results WBC 18.0 x10^3/uL (4.8-10.8) H 11/21/23 04:20 RBC 3.87 10^6/uL (4.20-5.40) L 11/21/23 04:20 Hgb 11.7 g/dL (12.0-16.0) L 11/21/23 04:20 Hct 34.0 % (37.0-47.0) L 11/21/23 04:20 MCV 87.9 fL (81.0-99.0) 11/21/23 04:20 MCH 30.2 pg (27.0-31.0) 11/21/23 04:20 MCHC 34.4 g/dL (32.0-36.0) 11/21/23 04:20 RDW 13.0 % (12.0-15.0) 11/21/23 04:20 Plt Count 111 10^3/uL (130-450) L 11/21/23 04:20 MPV 11.3 fL (7.9-10.8) H 11/21/23 04:20 Neut # (Auto) 15.4 10^3/uL (1.5-6.6) H 11/21/23 04:20 Lymph # (Auto) 1.3 10^3/uL (1.5-3.5) L 11/21/23 04:20 [place] # (Auto) 1.1 10^3/uL (0.0-1.0) H 11/21/23 04:20 Eos # (Auto) 0.0 10^3/uL (0.0-0.7) 11/21/23 04:20 Baso # (Auto) 0.1 10^3/uL (0.0-0.1) 11/21/23 04:20 Absolute Nucleated RBC 0.00 x10^3/uL 11/21/23 04:20 Nucleated RBC % 0.0 /100WBC 11/21/23 04:20 Sodium 139 mmol/L (135-145) 11/21/23 04:20 Potassium 3.7 mmol/L (3.5-4.5) 11/21/23 04:20 Chloride 108 mmol/L (101-111) 11/21/23 04:20 Carbon Dioxide 24 mmol/L (21-32) 11/21/23 04:20 Anion Gap 7.0 (6-13) 11/21/23 04:20 BUN 14 mg/dL (6-20) 11/21/23 04:20 Creatinine 0.5 mg/dL (0.6-1.3) L 11/21/23 04:20 Estimated GFR (MDRD) 123 (>89) 11/21/23 04:20 Glucose 149 mg/dL (74-104) H 11/21/23 04:20 POC Whole Bld Glucose 130 mg/dL (70 - 100) H 11/21/23 07:43 Estimat Average Glucose 252 mg/dL (70-100) H 11/20/23 18:02 Hemoglobin A1c % 10.4 % (4.27-6.07) H 11/20/23 18:02 Lactic Acid 1.7 mmol/L (0.5-2.2) 11/21/23 07:23 Calcium 8.7 mg/dL (8.5-10.3) 11/21/23 04:20 Magnesium 1.3 mg/dL (1.7-2.3) L 11/20/23 18:02 Total Bilirubin 0.5 mg/dL (0.2-1.0) 11/21/23 04:20 AST 48 IU/L (10-42) H 11/21/23 04:20 ALT 54 IU/L (10-60) 11/21/23 04:20 Alkaline Phosphatase 65 IU/L (42-121) 11/21/23 04:20 C-Reactive Protein 3.2 mg/dL (<0.5) H 11/20/23 18:02 Total Protein 5.6 g/dL (6.4-8.9) L 11/21/23 04:20 Albumin 3.6 g/dL (3.2-5.5) 11/21/23 04:20 Globulin 2.0 g/dL (2.1-4.2) L 11/21/23 04:20 Albumin/Globulin Ratio 1.8 (1.0-2.2) 11/21/23 04:20 Triglycerides 70 mg/dL (48-352) 11/20/23 23:07 Cholesterol 123 mg/dL (-200) 11/20/23 23:07 LDL Cholesterol, Calc 57 mg/dL (-129) 11/20/23 23:07 VLDL Cholesterol 14 mg/dL 11/20/23 23:07 HDL Cholesterol 52 mg/dL (60-) L 11/20/23 23:07 LDL/HDL Ratio 1.1 (<4.4) 11/20/23 23:07 Cholesterol/HDL Ratio 2.4 (<4.4) 11/20/23 23:07 Lipase 10 U/L (11-82) L 11/20/23 18:02 TSH 0.52 uIU/mL (0.34-5.60) 11/20/23 23:07 Urine Color YELLOW 11/20/23 17:45 Urine Clarity CLOUDY (CLEAR) 11/20/23 17:45 Urine pH 6.0 PH (5.0-7.5) 11/20/23 17:45 Ur Specific [place] 1.015 (1.002-1.030) 11/20/23 17:45 Urine Protein 30 mg/dL (NEGATIVE) H 11/20/23 17:45 Urine Glucose (UA) >=1000 mg/dL (NEGATIVE) H 11/20/23 17:45 Urine Ketones TRACE mg/dL (NEGATIVE) 11/20/23 17:45 Urine Occult Blood TRACE-LYSE (NEGATIVE) 11/20/23 17:45 Urine Nitrite POSITIVE (NEGATIVE) H 11/20/23 17:45 Urine Bilirubin NEGATIVE (NEGATIVE) 11/20/23 17:45 Urine Urobilinogen 0.2 (NORMAL) E.U./dL (NORMAL) 11/20/23 17:45 Ur Leukocyte Esterase NEGATIVE (NEGATIVE) 11/20/23 17:45 Urine RBC 0-5 /HPF (0-5) 11/20/23 17:45 Urine WBC 6-10 /HPF (0-5) H 11/20/23 17:45 Ur Squamous Epith Cells FEW Squamous (<= Few) 11/20/23 17:45 Urine Bacteria Many /HPF (None Seen) H 11/20/23 17:45 Ur Microscopic Review INDICATED 11/20/23 17:45 Urine Culture Comments INDICATED 11/20/23 17:45 Nasal Adenovirus (PCR) NOT DETECTED 11/20/23 18:10 Nasal B. parapertussis DNA (PCR) NOT DETECTED 11/20/23 18:10 Nasal Coronavir 229E PCR NOT DETECTED 11/20/23 18:10 Nasal Coronavir HKU1 PCR NOT DETECTED 11/20/23 18:10 Nasal Coronavir NL63 PCR NOT DETECTED 11/20/23 18:10 Nasal Coronavir OC43 PCR NOT DETECTED 11/20/23 18:10 Nasal Enterovir/Rhinovir PCR NOT DETECTED 11/20/23 18:10 Nasal Influenza B PCR NOT DETECTED 11/20/23 18:10 Nasal Influenza A PCR NOT DETECTED 11/20/23 18:10 Nasal Parainfluen 1 PCR NOT DETECTED 11/20/23 18:10 Nasal Parainfluen 2 PCR NOT DETECTED 11/20/23 18:10 Nasal Parainfluen 3 PCR NOT DETECTED 11/20/23 18:10 Nasal Parainfluen 4 PCR NOT DETECTED 11/20/23 18:10 Nasal RSV (PCR) NOT DETECTED 11/20/23 18:10 Nasal B.pertussis DNA PCR NOT DETECTED 11/20/23 18:10 Nasal C.pneumoniae (PCR) NOT DETECTED 11/20/23 18:10 Ze Human Metapneumo PCR NOT DETECTED 11/20/23 18:10 Nasal M.pneumoniae (PCR) NOT DETECTED 11/20/23 18:10 Nasal SARS-CoV-2 (PCR) NOT DETECTED 11/20/23 18:10
[2023-11-21] MEDS: IBUPROFEN 400 MG TABLET PO SCH (15:23)
[2023-11-21] MEDS ORDERED: cefTRIAXone 1 GM in SODIUM CHLORIDE 0.9% MINIBAG 100 ML IV SCH (18:00)
[2023-11-21] MEDS: ATORVASTATIN 40 MG TABLET PO SCH (21:19)
[2023-11-21] MEDS: GABAPENTIN 300 MG CAPSULE PO SCH (21:20)
[2023-11-22 06:02] LABS: BASOPHILS # (AUTO) 0.1 10^3/uL (0.0-0.1); BASOPHILS % (AUTO) 0.5 %; EOSINOPHILS # (AUTO) 0.3 10^3/uL (0.0-0.7); EOSINOPHILS % (AUTO) 2.2 %; HCT - HEMATOCRIT 37.6 % (37.0-47.0); HGB - HEMOGLOBIN 12.6 g/dL (12.0-16.0); LYMPHOCYTES # (AUTO) 1.6 10^3/uL (1.5-3.5); LYMPHOCYTES % (AUTO) 11.1 %; MEAN CORPUSCULAR HGB CONC 33.5 g/dL (32.0-36.0); MEAN CORPUSCULAR VOLUME 89.5 fL (81.0-99.0); MEAN PLATELET VOLUME 12.3 fL (7.9-10.8); MONOCYTES # (AUTO) 1.2 10^3/uL (0.0-1.0); MONOCYTES % (AUTO) 8.1 %; NEUTROPHILS # (AUTO) 11.4 10^3/uL (1.5-6.6); NEUTROPHILS % (AUTO) 77.5 %; PLT - PLATELET COUNT 81 10^3/uL (130-450); RED CELL DISTRIBUTION WIDTH 13.4 % (12.0-15.0); WHITE BLOOD COUNT 14.7 x10^3/uL (4.8-10.8)
[2023-11-22 06:21] LABS: CALCIUM 9.6 mg/dL (8.5-10.3); CREATININE 0.6 mg/dL (0.6-1.3); POTASSIUM 3.7 mmol/L (3.5-4.5)
[2023-11-22] MEDS: polyethylene glycoL 3350 17 GM PACKET PO SCH (08:13)
[2023-11-22] MEDS: SOLIFENACIN SUCCINATE 5 MG TABLET PO SCH (08:14)
--- NOTE | 2023-11-22 09:22 | PROVIDER PROGRESS NOTE ---
Assessment/Plan - Problem List (1) Bacteremia due to Klebsiella pneumoniae Assessment/Plan: (1) Bacteremia due to Klebsiella pneumoniae Assessment/Plan: --Started on IV ceftriaxone 2 g daily. Will need a total of 14 days of antibiotics. --Blood and urine cultures are pending. --Etiology is believed to be the urine. --WBC downtrending. (2) Sepsis Assessment/Plan: --As above. (3) UTI (urinary tract infection) Assessment/Plan: --Awaiting final urine culture. Continue IV antibiotics as above. --No evidence of pyelonephritis on CT. She is not having any flank pain. (4) Type 2 diabetes mellitus Assessment/Plan: --Continue SSI. (5) Arthritis Assessment/Plan: --Deformities of L4/L5. Started on her home tylenol, ibuprofen, gabapentin regimen. --PT consulted. Dispo: Inpatient. Pending final cultures. - Current Meds Current Meds: Current Medications Generic Name Dose Route Start Last Admin Trade Name Freq PRN Reason Stop Dose Admin Acetaminophen 650 mg 11/20/23 22:39 11/22/23 08:13 Acetaminophen 325 Mg Tablet PO 650 mg Q6H PRN Administration Pain 1 to 4, or Fever Atorvastatin Calcium 40 mg 11/21/23 21:00 11/21/23 21:19 Atorvastatin 40 Mg Tablet PO 40 mg QPM MOUNIKA Administration Enoxaparin Sodium 40 mg 11/21/23 09:00 11/22/23 08:15 Enoxaparin 40 Mg/0.4 Ml Syringe SUBQ 40 mg DAILY MOUNIKA Administration Famotidine 20 mg 11/21/23 09:00 11/22/23 08:14 Famotidine 20 Mg Tablet PO 20 mg DAILY MOUNIKA Administration Gabapentin 300 mg 11/21/23 21:00 11/21/23 21:20 Gabapentin 300 Mg Capsule PO 300 mg HS MOUNIKA Administration Gabapentin 100 mg 11/21/23 15:45 11/22/23 08:14 Gabapentin 100 Mg Capsule PO 100 mg 0900,1600 MOUNIKA Administration Ceftriaxone Sodium 2 gm/ 100 mls @ 200 mls/hr 11/21/23 09:00 11/22/23 08:15 Sodium Chloride IV 200 mls/hr DAILY MOUNIKA Administration Ibuprofen 200 mg 11/21/23 14:00 11/22/23 05:28 Ibuprofen 400 Mg Tablet PO 200 mg TID MOUNIKA Administration Insulin Human Lispro 3 - 11 unit 11/21/23 08:00 11/22/23 08:15 Insulin Lispro 300 Unit/3 Ml Pen SUBQ 5 unit 0800,1200,1700,2100 MOUNIKA Administration Protocol Lisinopril 40 mg 11/21/23 09:00 11/22/23 08:14 Lisinopril 20 Mg Tablet PO 40 mg DAILY MOUNIKA Administration Ondansetron HCl 4 mg 11/20/23 22:39 11/21/23 05:16 Ondansetron Odt 4 Mg Tablet TL 4 mg Q6HR PRN Administration Nausea / Vomiting Polyethylene Glycol 17 gm 11/22/23 09:00 11/22/23 08:13 Polyethylene Glycol 3350 17 Gm Packet PO 17 gm DAILY MOUNIKA Administration Sodium Chloride 10 ml 11/21/23 01:00 11/22/23 08:14 Sodium Chloride Flush 0.9% 10 Ml Syringe IVP 10 ml 0100,0900,1700 MOUNIKA Administration Solifenacin 10 mg 11/22/23 09:00 11/22/23 08:14 Solifenacin Succinate 5 Mg Tablet PO 10 mg DAILY MOUNIKA Administration - Lab Result Fish Bone Diagrams: 11/22/23 05:39 11/22/23 05:39 - Additional Planning My Orders: My Active Orders 11/21/23 09:00 cefTRIAXone [Rocephin] 2 gm Sodium Chloride 0.9% Minibag [Normal Saline 0.9% Minibag] 100 ml IV DAILY 11/21/23 14:00 Ibuprofen [Motrin] 200 mg PO TID 11/21/23 21:00 Gabapentin [Neurontin] 300 mg PO HS 11/22/23 Evaluate and Treat PT [PT] Routine 11/22/23 05:00 MAGNESIUM [CHEM] Routine 11/22/23 05:39 Blood Culture [CULTURE, BLOOD #2] [RM] DAILY 11/22/23 09:00 Insulin Glargine-Yfgn [Semglee] 10 unit SUBQ DAILY Solifenacin Succinate [Vesicare] 10 mg PO DAILY polyethylene glycoL 3350 [Miralax] 17 gm PO DAILY 11/23/23 05:00 BMP - BASIC METABOLIC PANEL [CHEM] DAILYLAB CBC [CBC - COMP BLD CT W/AUTO DIFF] [HEME] DAILYLAB 11/24/23 05:00 BMP - BASIC METABOLIC PANEL [CHEM] DAILYLAB CBC [CBC - COMP BLD CT W/AUTO DIFF] [HEME] DAILYLAB 11/25/23 05:00 BMP - BASIC METABOLIC PANEL [CHEM] DAILYLAB CBC [CBC - COMP BLD CT W/AUTO DIFF] [HEME] DAILYLAB 11/26/23 05:00 BMP - BASIC METABOLIC PANEL [CHEM] DAILYLAB CBC [CBC - COMP BLD CT W/AUTO DIFF] [HEME] DAILYLAB Subjective - Subjective Patient Reports: Feeling Better, Resting Comfortably, No Complaints Objective Vital Signs: Vital Signs - 24 hr 11/21/23 11/21/23 11/21/23 10:15 13:39 16:00 Temperature 36.9 C 36.8 C Heart Rate [ Brachial] Heart Rate [ 79 75 Monitoring electrodes] Respiratory 18 18 16 Rate Blood Pressure 114/62 128/63 132/64 H [Right Brachial artery] O2 Saturation 95 94 11/22/23 11/22/23 11/22/23 00:33 00:45 08:00 Temperature 36.8 C 36.5 C Heart Rate [ 85 78 Brachial] Heart Rate [ Monitoring electrodes] Respiratory 20 18 Rate Blood Pressure 141/73 H 159/85 H [Right Brachial artery] O2 Saturation 92 96 92 Oxygen O2 Source Room air I&O (Last 24 Hrs): Intake and Output Totals x24h 11/20/23 11/21/23 11/22/23 23:59 23:59 23:59 Intake Total 0 2520 Output Total 200 500 Balance 2049 2320 -500 General: Alert, Oriented x3, Cooperative, No acute distress Cardiovascular: Regular rate, Normal S1, Normal S2, No murmurs Respiratory: Chest non-tender, No respiratory distress, Breath sounds nml Abdomen: Normal bowel sounds, Soft, No tenderness, No hepatospenomegaly, No masses - Results Results: Laboratory Results WBC 14.7 x10^3/uL (4.8-10.8) H 11/22/23 05:39 RBC 4.20 10^6/uL (4.20-5.40) 11/22/23 05:39 Hgb 12.6 g/dL (12.0-16.0) 11/22/23 05:39 Hct 37.6 % (37.0-47.0) 11/22/23 05:39 MCV 89.5 fL (81.0-99.0) 11/22/23 05:39 MCH 30.0 pg (27.0-31.0) 11/22/23 05:39 MCHC 33.5 g/dL (32.0-36.0) 11/22/23 05:39 RDW 13.4 % (12.0-15.0) 11/22/23 05:39 Plt Count 81 10^3/uL (130-450) L 11/22/23 05:39 MPV 12.3 fL (7.9-10.8) H 11/22/23 05:39 Neut # (Auto) 11.4 10^3/uL (1.5-6.6) H 11/22/23 05:39 Lymph # (Auto) 1.6 10^3/uL (1.5-3.5) 11/22/23 05:39 [place] # (Auto) 1.2 10^3/uL (0.0-1.0) H 11/22/23 05:39 Eos # (Auto) 0.3 10^3/uL (0.0-0.7) 11/22/23 05:39 Baso # (Auto) 0.1 10^3/uL (0.0-0.1) 11/22/23 05:39 Absolute Nucleated RBC 0.00 x10^3/uL 11/22/23 05:39 Nucleated RBC % 0.0 /100WBC 11/22/23 05:39 Sodium 135 mmol/L (135-145) 11/22/23 05:39 Potassium 3.7 mmol/L (3.5-4.5) 11/22/23 05:39 Chloride 102 mmol/L (101-111) 11/22/23 05:39 Carbon Dioxide 27 mmol/L (21-32) 11/22/23 05:39 Anion Gap 6.0 (6-13) 11/22/23 05:39 BUN 15 mg/dL (6-20) 11/22/23 05:39 Creatinine 0.6 mg/dL (0.6-1.3) 11/22/23 05:39 Estimated GFR (MDRD) 100 (>89) 11/22/23 05:39 Glucose 218 mg/dL (74-104) H 11/22/23 05:39 POC Whole Bld Glucose 225 mg/dL (70 - 100) H 11/22/23 07:42 Estimat Average Glucose 252 mg/dL (70-100) H 11/20/23 18:02 Hemoglobin A1c % 10.4 % (4.27-6.07) H 11/20/23 18:02 Lactic Acid 1.7 mmol/L (0.5-2.2) 11/21/23 07:23 Calcium 9.6 mg/dL (8.5-10.3) 11/22/23 05:39 Magnesium 1.3 mg/dL (1.7-2.3) L 11/20/23 18:02 Total Bilirubin 0.5 mg/dL (0.2-1.0) 11/21/23 04:20 AST 48 IU/L (10-42) H 11/21/23 04:20 ALT 54 IU/L (10-60) 11/21/23 04:20 Alkaline Phosphatase 65 IU/L (42-121) 11/21/23 04:20 C-Reactive Protein 3.2 mg/dL (<0.5) H 11/20/23 18:02 Total Protein 5.6 g/dL (6.4-8.9) L 11/21/23 04:20 Albumin 3.6 g/dL (3.2-5.5) 11/21/23 04:20 Globulin 2.0 g/dL (2.1-4.2) L 11/21/23 04:20 Albumin/Globulin Ratio 1.8 (1.0-2.2) 11/21/23 04:20 Triglycerides 70 mg/dL (48-352) 11/20/23 23:07 Cholesterol 123 mg/dL (-200) 11/20/23 23:07 LDL Cholesterol, Calc 57 mg/dL (-129) 11/20/23 23:07 VLDL Cholesterol 14 mg/dL 11/20/23 23:07 HDL Cholesterol 52 mg/dL (60-) L 11/20/23 23:07 LDL/HDL Ratio 1.1 (<4.4) 11/20/23 23:07 Cholesterol/HDL Ratio 2.4 (<4.4) 11/20/23 23:07 Lipase 10 U/L (11-82) L 11/20/23 18:02 TSH 0.52 uIU/mL (0.34-5.60) 11/20/23 23:07 Urine Color YELLOW 11/20/23 17:45 Urine Clarity CLOUDY (CLEAR) 11/20/23 17:45 Urine pH 6.0 PH (5.0-7.5) 11/20/23 17:45 Ur Specific [place] 1.015 (1.002-1.030) 11/20/23 17:45 Urine Protein 30 mg/dL (NEGATIVE) H 11/20/23 17:45 Urine Glucose (UA) >=1000 mg/dL (NEGATIVE) H 11/20/23 17:45 Urine Ketones TRACE mg/dL (NEGATIVE) 11/20/23 17:45 Urine Occult Blood TRACE-LYSE (NEGATIVE) 11/20/23 17:45 Urine Nitrite POSITIVE (NEGATIVE) H 11/20/23 17:45 Urine Bilirubin NEGATIVE (NEGATIVE) 11/20/23 17:45 Urine Urobilinogen 0.2 (NORMAL) E.U./dL (NORMAL) 11/20/23 17:45 Ur Leukocyte Esterase NEGATIVE (NEGATIVE) 11/20/23 17:45 Urine RBC 0-5 /HPF (0-5) 11/20/23 17:45 Urine WBC 6-10 /HPF (0-5) H 11/20/23 17:45 Ur Squamous Epith Cells FEW Squamous (<= Few) 11/20/23 17:45 Urine Bacteria Many /HPF (None Seen) H 11/20/23 17:45 Ur Microscopic Review INDICATED 11/20/23 17:45 Urine Culture Comments INDICATED 11/20/23 17:45 Nasal Adenovirus (PCR) NOT DETECTED 11/20/23 18:10 Nasal B. parapertussis DNA (PCR) NOT DETECTED 11/20/23 18:10 Nasal Coronavir 229E PCR NOT DETECTED 11/20/23 18:10 Nasal Coronavir HKU1 PCR NOT DETECTED 11/20/23 18:10 Nasal Coronavir NL63 PCR NOT DETECTED 11/20/23 18:10 Nasal Coronavir OC43 PCR NOT DETECTED 11/20/23 18:10 Nasal Enterovir/Rhinovir PCR NOT DETECTED 11/20/23 18:10 Nasal Influenza B PCR NOT DETECTED 11/20/23 18:10 Nasal Influenza A PCR NOT DETECTED 11/20/23 18:10 Nasal Parainfluen 1 PCR NOT DETECTED 11/20/23 18:10 Nasal Parainfluen 2 PCR NOT DETECTED 11/20/23 18:10 Nasal Parainfluen 3 PCR NOT DETECTED 11/20/23 18:10 Nasal Parainfluen 4 PCR NOT DETECTED 11/20/23 18:10 Nasal RSV (PCR) NOT DETECTED 11/20/23 18:10 Nasal B.pertussis DNA PCR NOT DETECTED 11/20/23 18:10 Nasal C.pneumoniae (PCR) NOT DETECTED 11/20/23 18:10 Ze Human Metapneumo PCR NOT DETECTED 11/20/23 18:10 Nasal M.pneumoniae (PCR) NOT DETECTED 11/20/23 18:10 Nasal SARS-CoV-2 (PCR) NOT DETECTED 11/20/23 18:10
[2023-11-22] MEDS: INSULIN GLARGINE-YFGN 300 UNIT/3 ML PEN SUBQ SCH (11:05)
[2023-11-22] MEDS: MAGNESIUM SULFATE 2 GRAM 2 GM/50 ML BAG IV ONE ×2 (12:11→15:58)
[2023-11-22] MEDS: ONDANSETRON 4 MG/2 ML VIAL IVP PRN (15:48)
[2023-11-22] MEDS: SENNA 8.6 MG TABLET PO SCH (16:36)
[2023-11-22] MEDS: BISACODYL 10 MG SUPP PR ONE (21:19)
[2023-11-23 06:05] LABS: BASOPHILS # (AUTO) 0.1 10^3/uL (0.0-0.1); BASOPHILS % (AUTO) 0.6 %; EOSINOPHILS # (AUTO) 0.2 10^3/uL (0.0-0.7); EOSINOPHILS % (AUTO) 1.3 %; HCT - HEMATOCRIT 40.3 % (37.0-47.0); HGB - HEMOGLOBIN 13.1 g/dL (12.0-16.0); LYMPHOCYTES # (AUTO) 1.1 10^3/uL (1.5-3.5); LYMPHOCYTES % (AUTO) 8.6 %; MEAN CORPUSCULAR HEMOGLOBIN 29.6 pg (27.0-31.0); MEAN CORPUSCULAR HGB CONC 32.5 g/dL (32.0-36.0); MONOCYTES # (AUTO) 1.1 10^3/uL (0.0-1.0); MONOCYTES % (AUTO) 8.2 %; NEUTROPHILS # (AUTO) 10.5 10^3/uL (1.5-6.6); NEUTROPHILS % (AUTO) 79.6 %; PLT - PLATELET COUNT 83 10^3/uL (130-450); RED BLOOD COUNT 4.43 10^6/uL (4.20-5.40); RED CELL DISTRIBUTION WIDTH 13.2 % (12.0-15.0); WHITE BLOOD COUNT 13.2 x10^3/uL (4.8-10.8)
[2023-11-23 06:31] LABS: CALCIUM 9.5 mg/dL (8.5-10.3); CREATININE 0.7 mg/dL (0.6-1.3); POTASSIUM 3.6 mmol/L (3.5-4.5)
[2023-11-23] MEDS: OXYBUTYNIN PO SCH (08:16)
--- NOTE | 2023-11-23 16:49 | PROVIDER PROGRESS NOTE ---
Subjective - Prog Note Date Prog Note Date: 11/23/23 Prog Note Time: 16:47 - Subjective Pt reports feeling: Improved Subjective: More than anything she is just very, very tired. Feels exhausted and running out. But she denies chest pain, flank pain, abdominal pain. She did not eat breakfast today but ate 75% of her lunch. Main problem today has been constipation. She has had no fevers since admission. White cell count has gone from 18.6-13.2. She has chronic back pain. She says that she controls with yoga in the outpatient setting. She asked physical therapy if we had a yoga mat and we do not. She refused to see PT and says that she just controls her back pain in her own way. Nutrition services tells me that this lady has had uncontrolled glucose while she is here. Current Medications - Current Medications Current Medications: Active Medications Acetaminophen (Acetaminophen 325 Mg Tablet) 650 mg PO Q6H PRN PRN Reason: Pain 1 to 4, or Fever Last Admin: 11/23/23 16:08 Dose: 650 mg Atorvastatin Calcium (Atorvastatin 40 Mg Tablet) 40 mg PO QPM [facility] Last Admin: 11/22/23 21:00 Dose: 40 mg Enoxaparin Sodium (Enoxaparin 40 Mg/0.4 Ml Syringe) 40 mg SUBQ DAILY [facility] Last Admin: 11/23/23 08:17 Dose: 40 mg Famotidine (Famotidine 20 Mg Tablet) 20 mg PO DAILY [facility] Last Admin: 11/23/23 08:17 Dose: 20 mg Gabapentin (Gabapentin 300 Mg Capsule) 300 mg PO HS [facility] Last Admin: 11/22/23 21:01 Dose: 300 mg Gabapentin (Gabapentin 100 Mg Capsule) 100 mg PO 0900,1600 [facility] Last Admin: 11/23/23 16:08 Dose: 100 mg Ceftriaxone Sodium 2 gm/ (Sodium Chloride) 100 mls @ 200 mls/hr IV DAILY [facility] Last Admin: 11/23/23 08:16 Dose: 200 mls/hr Ibuprofen (Ibuprofen 400 Mg Tablet) 200 mg PO TID [facility] Last Admin: 11/23/23 13:33 Dose: 200 mg Insulin Glargine-yfgn (Insulin Glargine-Yfgn 300 Unit/3 Ml Pen) 10 unit SUBQ DAILY [facility] Last Admin: 11/23/23 08:14 Dose: 10 unit Insulin Human Lispro (Insulin Lispro 300 Unit/3 Ml Pen) 3 - 11 unit SUBQ 0800,1200,1700,2100 [facility]; Protocol Last Admin: 11/23/23 11:51 Dose: 3 unit Lisinopril (Lisinopril 20 Mg Tablet) 40 mg PO DAILY [facility] Last Admin: 11/23/23 08:18 Dose: 40 mg Morphine Sulfate (Morphine 2 Mg/Ml Carpuject) 1 mg IVP Q2HR PRN PRN Reason: Pain 8 to 10 Ondansetron HCl (Ondansetron Odt 4 Mg Tablet) 4 mg TL Q6HR PRN PRN Reason: Nausea / Vomiting Last Admin: 11/21/23 05:16 Dose: 4 mg Ondansetron HCl (Ondansetron 4 Mg/2 Ml Vial) 4 mg IVP Q4HR PRN PRN Reason: Nausea / Vomiting Last Admin: 11/22/23 15:48 Dose: 4 mg Oxycodone HCl (Oxycodone 5 Mg Tablet) 5 mg PO Q4HR PRN PRN Reason: Pain 5 to 7 Patient Own Med ( (Oxybutynin Er10mg)) 1 each PO DAILY [facility] Last Admin: 11/23/23 08:16 Dose: 1 each Polyethylene Glycol (Polyethylene Glycol 3350 17 Gm Packet) 17 gm PO DAILY [facility] Last Admin: 11/23/23 08:18 Dose: 17 gm Sodium Chloride (Sodium Chloride Flush 0.9% 10 Ml Syringe) 10 ml IVP PRN PRN PRN Reason: NEEDED PER PROVIDER ORDERS Sodium Chloride (Sodium Chloride Flush 0.9% 10 Ml Syringe) 10 ml IVP 0100,0900,1700 [facility] Last Admin: 11/23/23 16:09 Dose: 10 ml Tizanidine HCl (Tizanidine 4 Mg Tablet) 2 mg PO HS PRN PRN Reason: Spasms Adalimumab [Humira Pen] 40 mg SUBQ Q14D 11/20/23 Famotidine [Pepcid] 40 mg PO DAILY 11/20/23 Gabapentin [Neurontin] 100 mg PO BID 11/20/23 Gabapentin [Neurontin] 300 mg PO HS 11/20/23 Insulin Glargine,Hum.rec.anlog [Basaglar Kwikpen U-100] 70 unit SUBQ BID 11/20/23 Insulin Lispro [Humalog] See Rx Instructions .ROUTE .COMPLEX 11/20/23 Lisinopril [Zestril] 40 mg PO DAILY 11/20/23 Rosuvastatin Calcium 20 mg PO DAILY 11/20/23 Tizanidine HCl 2 mg PO HS PRN 11/20/23 oxyBUTYnin chloride [Oxybutynin Chloride ER] 10 mg PO DAILY 11/21/23 Glucosamine Sulfate 1,000 - 2,000 mg PO DAILY 11/22/23 Objective - Vital Signs/Intake & Output Reviewed Vital Signs: Yes Vital Signs: Vital Signs x48h Temp Pulse Resp BP Pulse Ox 11/23/23 15:52 36.4 C L 77 16 142/67 H 94 Intake & Output: Intake & Output 11/20/23 11/21/23 11/22/23 11/23/23 23:59 23:59 23:59 23:59 Intake Total 2049 2520 790 1570 Output Total 200 2475 500 Balance 2049 2320 -1685 1070 - Objective General Appearance: positive: No acute distress, Alert Eyes Bilateral: positive: PERRL, EOMI ENT: positive: No signs of dehydration Neck: positive: No JVD. negative: Stiff neck Respiratory: positive: No respiratory distress, Other (diminished at the bases). negative: Wheezes, Rales, Rhonchi Cardiovascular: positive: Regular rate & rhythm Abdomen: positive: Non-tender, No organomegaly, Nml bowel sounds, Other (very large panus) Skin: positive: Warm, Dry Extremities: positive: Full ROM, No pedal edema Neurologic/Psychiatric: positive: Oriented x3, CN's nml (2-12), Motor nml, Other (fatigued) - Lab Results Fish Bones: 11/23/23 05:10 11/23/23 05:18 Other Labs: Lab Results x24hrs 11/23/23 11/23/23 11/23/23 Range/Units 07:34 05:18 05:10 WBC 13.2 H (4.8-10.8) x10^3/uL RBC 4.43 (4.20-5.40) 10^6/uL Hgb 13.1 (12.0-16.0) g/dL Hct 40.3 (37.0-47.0) % MCV 91.0 (81.0-99.0) fL MCH 29.6 (27.0-31.0) pg MCHC 32.5 (32.0-36.0) g/dL RDW 13.2 (12.0-15.0) % Plt Count 83 L (130-450) 10^3/uL MPV 12.0 H (7.9-10.8) fL Neut # (Auto) 10.5 H (1.5-6.6) 10^3/uL Lymph # (Auto) 1.1 L (1.5-3.5) 10^3/uL [place] # (Auto) 1.1 H (0.0-1.0) 10^3/uL Eos # (Auto) 0.2 (0.0-0.7) 10^3/uL Baso # (Auto) 0.1 (0.0-0.1) 10^3/uL Absolute Nucleated RBC 0.00 x10^3/uL Nucleated RBC % 0.0 /100WBC Sodium 134 L (135-145) mmol/L Potassium 3.6 (3.5-4.5) mmol/L Chloride 98 L (101-111) mmol/L Carbon Dioxide 26 (21-32) mmol/L Anion Gap 10.0 (6-13) BUN 14 (6-20) mg/dL Creatinine 0.7 (0.6-1.3) mg/dL Estimated GFR (MDRD) 83 L (>89) Glucose 237 H (74-104) mg/dL POC Whole Bld Glucose 214 H (70 - 100) mg/dL Calcium 9.5 (8.5-10.3) mg/dL 11/22/23 11/22/23 Range/Units 20:54 16:47 WBC (4.8-10.8) x10^3/uL RBC (4.20-5.40) 10^6/uL Hgb (12.0-16.0) g/dL Hct (37.0-47.0) % MCV (81.0-99.0) fL MCH (27.0-31.0) pg MCHC (32.0-36.0) g/dL RDW (12.0-15.0) % Plt Count (130-450) 10^3/uL MPV (7.9-10.8) fL Neut # (Auto) (1.5-6.6) 10^3/uL Lymph # (Auto) (1.5-3.5) 10^3/uL [place] # (Auto) (0.0-1.0) 10^3/uL Eos # (Auto) (0.0-0.7) 10^3/uL Baso # (Auto) (0.0-0.1) 10^3/uL Absolute Nucleated RBC x10^3/uL Nucleated RBC % /100WBC Sodium (135-145) mmol/L Potassium (3.5-4.5) mmol/L Chloride (101-111) mmol/L Carbon Dioxide (21-32) mmol/L Anion Gap (6-13) BUN (6-20) mg/dL Creatinine (0.6-1.3) mg/dL Estimated GFR (MDRD) (>89) Glucose (74-104) mg/dL POC Whole Bld Glucose 172 H 175 H (70 - 100) mg/dL Calcium (8.5-10.3) mg/dL ABX Reporting Has patient been on IV antibiotics over the past 48 hours?: Yes Assessment/Plan - Problem List (1) Bacteremia due to Klebsiella pneumoniae Impression: --Etiology is urine --Started on IV ceftriaxone 2 g daily. She is Day #3/14 days of antibiotics. --All 4 bottles blood cultures from November 19 as well as urine cultures grew out Klebsiella pneumonia. Repeat blood cultures on November 21 are all negative. On admission white cell count was 19 and she went to 18.6 later that evening. Her white cell count has been steadily coming down and she is 13.2 today. Still has a left shift with high amount of neutrophils/bands. I thought about transitioning her to oral antibiotics today. But her white cell count is still elevated. She has not had a fever since her first day of admission. Once her white cell count is down to normal I will transition her to oral antibiotics and discharge to home. I've encouraged her to get out of bed and sit in chair or walk in room (2) UTI (urinary tract infection) Assessment/Plan: -- Continue IV antibiotics as above. --No evidence of pyelonephritis on CT. She is not having any flank pain. (3) Type 2 diabetes mellitus, uncontrolled with hyperglycemia. No complications. On mcfp use of insulin. Assessment/Plan: Glycosylated hemoglobin is 10.4%. At home it is reported that she does 70 units of long-acting at night. Then short acting with meals. Here she is on long-acting, 10 units at night. Plus short acting. Selected Entries 11/22/23 11/22/23 11/22/23 08:00 11:36 17:00 Result (mg/dL) 225 198 175 11/23/23 11/23/23 07:56 11:51 Result (mg/dL) 214 178 Plan:I will Increase Semglee to 10 units at night in addition to the 10 units in the am that she is on. Add 5 units of correction with each meal. Continue sliding scale. (4) Arthritis with chronic back pain Assessment/Plan: --Deformities of L4/L5. Started on her home tylenol, ibuprofen, gabapentin regimen. --PT Ordered yesterday on November 21. However PT did not get that order and I reminded them to see her today. (5) Sepsis resolved Assessment/Plan: --This was the reason for admission.
[2023-11-23] MEDS: INSULIN GLARGINE-YFGN 300 UNIT/3 ML PEN SUBQ SCH (21:29)
[2023-11-24 05:22] LABS: BASOPHILS # (AUTO) 0.1 10^3/uL (0.0-0.1); EOSINOPHILS # (AUTO) 0.3 10^3/uL (0.0-0.7); EOSINOPHILS % (AUTO) 3.4 %; HCT - HEMATOCRIT 34.6 % (37.0-47.0); HGB - HEMOGLOBIN 11.3 g/dL (12.0-16.0); LYMPHOCYTES # (AUTO) 1.5 10^3/uL (1.5-3.5); LYMPHOCYTES % (AUTO) 19.3 %; MEAN CORPUSCULAR HEMOGLOBIN 28.8 pg (27.0-31.0); MEAN CORPUSCULAR HGB CONC 32.7 g/dL (32.0-36.0); MEAN CORPUSCULAR VOLUME 88.3 fL (81.0-99.0); MONOCYTES # (AUTO) 1.5 10^3/uL (0.0-1.0); MONOCYTES % (AUTO) 19.1 %; NEUTROPHILS # (AUTO) 4.4 10^3/uL (1.5-6.6); NEUTROPHILS % (AUTO) 56.3 %; RED BLOOD COUNT 3.92 10^6/uL (4.20-5.40); RED CELL DISTRIBUTION WIDTH 13.1 % (12.0-15.0); WHITE BLOOD COUNT 7.9 x10^3/uL (4.8-10.8)
[2023-11-24 05:26] LABS: MEAN PLATELET VOLUME 11.5 fL (7.9-10.8); PLT - PLATELET COUNT 95 10^3/uL (130-450)
[2023-11-24 05:34] LABS: CALCIUM 9.1 mg/dL (8.5-10.3); CREATININE 0.6 mg/dL (0.6-1.3); POTASSIUM 3.7 mmol/L (3.5-4.5)
[2023-11-24 08:11] VITALS: BP 147/77; O2SAT 92
--- NOTE | 2023-11-24 08:20 | Discharge Plan ---
Discharge Plan Problem Reviewed?: Yes Disposition: Home, Self Care Condition: Good Diet: Diabetic Activity Restrictions: No Restrictions Shower Restrictions: No Driving Restrictions: No Instruction Topics: UTI No Smoking: If you smoke, Please STOP! Call for help.
--- NOTE | 2023-11-24 08:28 | Discharge Plan ---
Discharge Plan Disposition: 01 Home, Self Care Condition: Good Diet: Diabetic Activity Restrictions: No Restrictions Shower Restrictions: No Driving Restrictions: No Instruction Topics: UTI Health Concerns: You were admitted for urinary tract infection which then caused you to have bacteria in your blood. For that reason you need to be on 2 weeks of antibiotics. These have been sent in to [facility] in [place]. Plan of Treatment: Please start cefdinir twice a day and finish all of this medication. This has been sent to the pharmacy. Care Goals: I think you can reduce your risk of additional urinary tract infections by controlling your diabetes and the way that you know you should. Assessment: Urinary tract infection with resultant bacteremia. No Smoking: If you smoke, Please STOP! Call for help. Follow-up with: DYLON MEYER MD [Primary Care Provider] -
--- NOTE | 2023-11-24 08:43 | Discharge Plan ---
Discharge Plan Problem Reviewed?: Yes Disposition: Home, Self Care Condition: Good Prescriptions: Cefdinir 300 mg PO BID 10 Days #20 cap Activity Restrictions: No Restrictions Shower Restrictions: No Driving Restrictions: No Instruction Topics: UTI Health Concerns: You were admitted for urinary tract infection which then caused you to have bacteria in your blood. For that reason you need to be on 2 weeks of antibiotics. These have been sent in to [facility] in [place]. Plan of Treatment: Please start cefdinir twice a day and finish all of this medication. This has been sent to the pharmacy. Care Goals: I think you can reduce your risk of additional urinary tract infections by controlling your diabetes in the way that you know you should. Assessment: Urinary tract infection with resultant bacteremia. No Smoking: If you smoke, Please STOP! Call for help. Follow-up with: DYLON MEYER MD [Primary Care Provider] -
[2023-11-24] MEDS: INSULIN GLARGINE-YFGN 300 UNIT/3 ML PEN SUBQ SCH (08:46)
[2023-11-24] MEDS: INSULIN LISPRO 300 UNIT/3 ML PEN SUBQ SCH (08:47)
--- NOTE | 2023-11-24 08:48 | DISCHARGE SUMMARY ---
Discharge Summary Admit Date: 11/20/23 Discharge Date: 11/24/23 Discharging Provider: Tiffanie López PA-C Primary Care Provider: Armando Bronson Code Status: Attempt Resuscitation Condition at Discharge: Good Discharge Disposition: Home, Self Care - DIAGNOSES Discharge Diagnoses with Status of Each Condition: 1) Bacteremia due to Klebsiella pneumoniae Impression: --Etiology is urine --Started on IV ceftriaxone 2 g daily. She is Day #4/14 days of antibiotics. --All 4 bottles blood cultures from November 19 as well as urine cultures grew out Klebsiella pneumonia. Repeat blood cultures on November 21 are all negative. On admission white cell count was 19 and she went to 18.6 later that evening. Her white cell count has been steadily coming down and she is 7.9 today. She is transitioning to Cefdinir for 10 days on the date of dc to complete 14 days of abx therapy (2) UTI (urinary tract infection) Assessment/Plan: -- antibiotics as above. --No evidence of pyelonephritis on CT. She is not having any flank pain. Doing fine okay that there she is having her usual back pain (3) Type 2 diabetes mellitus, uncontrolled with hyperglycemia. No complications. On snf use of insulin. Assessment/Plan: Glycosylated hemoglobin is 10.4%. At home it is reported that she does 70 units of long-acting at night. Her blood sugars have been consistently in the 200s here. I would recommend that she go home and resume her diabetic regimen with PCP follow-up. (4) Arthritis with chronic back pain Assessment/Plan: --Spondylolisthesis of L5 on S1. Resume her home tylenol, ibuprofen, gabap entin regimen. Refused PT inpatient. Would prefer to discharge to home and resume her home exercise regimen for controlling back pain. (5) Sepsis resolved Assessment/Plan: --This was the reason for admission. - HPI History of Present Illness: Admitted from the ED with fevers chills nausea and vomiting x 24 hours. she did not have any dysuria. She did not have any hematuria. She, in retrospect, admits to some back pain that was different from her previous back pain. Does not have a history of recurrent urinary tract infections. This is in the setting of diabetes which is poorly controlled at home. At the time admission she did have a lactate of 3.4, spiked a fever to 38.0 and had an elevated white blood cell count. CT of the abdomen and pelvis did not show any pyelonephritis. - HOSPITAL COURSE Hospital Course: Blood cultures returned from the emergency department did show Klebsiella pneumonia. She was started on ceftriaxone 2 g daily. She will complete 14 days of antibiotics. Was transitioed to p.o. on the date of discharge. She defervesced shortly after admission. Her white blood cell count normalized on hospital day 5. Her diabetes remains poorly controlled while she was inpatient. We did escalate her insulin dosing. Hemoglobin A1c was checked and was 10.4%. I do not have a record of her previous hemoglobin A1c numbers. With regards to her back pain she was initially treated with IV Dilaudid. This was de-escalated to oxycodone on hospital day 4. She tolerated this well. She continued on her home regimen of ibuprofen, Tylenol, gabapentin and Zanaflex. Patient was able to show me images of previous lumbar MRI showing spondylol isthesis of L5 on S1. She does not have any symptoms of radiculopathy. Simply back pain. She does not have any lower extremity weakness. - ALLERGIES Allergies/Adverse Reactions: Allergies Allergy/AdvReac Type Severity Reaction Status Date / Time metformin Allergy Unknown Verified 11/20/23 17:30 Penicillins Allergy Unknown Verified 11/20/23 17:30 prednisone Allergy Unknown Verified 11/20/23 17:30 - MEDICATIONS Home Medications: Ambulatory Orders Medication Instructions Recorded Confirmed Adalimumab [Humira Pen] 40 mg SUBQ Q14D 11/20/23 11/20/23 Famotidine [Pepcid] 40 mg PO DAILY 11/20/23 11/21/23 Gabapentin [Neurontin] 100 mg PO BID 11/20/23 11/20/23 Gabapentin [Neurontin] 300 mg PO HS 11/20/23 11/20/23 Insulin Glargine,Hum.rec.anlog 70 unit SUBQ BID 11/20/23 11/22/23 [Fordagldmitriy Martinez U-100] Insulin Lispro [Humalog] See Rx Instructions .ROUTE .COMPLEX 11/20/23 11/20/23 Lisinopril [Zestril] 40 mg PO DAILY 11/20/23 11/20/23 Rosuvastatin Calcium 20 mg PO DAILY 11/20/23 11/20/23 Tizanidine HCl 2 mg PO HS PRN 11/20/23 11/20/23 oxyBUTYnin chloride [Oxybutynin 10 mg PO DAILY 11/21/23 11/21/23 Chloride ER] Glucosamine Sulfate 1,000 - 2,000 mg PO DAILY 11/22/23 11/22/23 Cefdinir 300 mg PO BID 10 Days #20 cap 11/24/23 - PHYSICAL EXAM AT DISCHARGE General Appearance: positive: No acute distress Eyes Bilateral: positive: Normal inspection ENT: positive: ENT inspection nml Neck: positive: Nml inspection Respiratory: positive: Breath sounds nml Cardiovascular: positive: Regular rate & rhythm Abdomen: positive: Non-tender Back: positive: Nml inspection, Other (mild midline lumbar ttp). negative: CVA tenderness (R), CVA tenderness (L) Skin: positive: Color nml Extremities: positive: No pedal edema Neurologic/Psychiatric: positive: Oriented x3 - LABS Result Diagrams: 11/24/23 04:45 11/24/23 04:45 - SEPSIS Current Stage of Sepsis: Resolved Possible source of Sepsis: Genitourinary Confirmed Source and Organism (if known) of Sepsis: Urinary, Klebsiella pneumoniae Sepsis Associated Organ Dysfunction: transient relative hypotension in the 110's Sepsis Criteria: Recorded Temperature greater than 38.3C or Less than 36C, Recorded Heart Rate greater than 90 bpm, WBC count greater than 10% bands, WBC count greater than 12,000 or less than 4000, SBP drop more than 40mHg, Metabolic: lactate > 2 mmol/L - QUALITY (Female Hip Fx Only) Was patient sent home on osteoporosis medication?: No - FOLLOW UP Follow Up: PCP, Dr Bronson within one week.
== END 2023-11-24 10:00 | disposition home or self-care (01) | DRG 872 ==
LOC: EDUNIT# → ED 17:28 → MS2 22:41
PROVIDERS: ADMIT Physician Assistant Medical; ATTEND Student in an Organized Health Care Education/Training Program
DX: A41.4 Sepsis due to anaerobes (principal); N39.0 Urinary tract infection, site not specified; R06.02 Shortness of breath; N12 Tubulo-interstitial nephritis, not specified as acute or chronic; E11.65 Type 2 diabetes mellitus with hyperglycemia; M19.90 Unspecified osteoarthritis, unspecified site; M43.16 Spondylolisthesis, lumbar region; Z11.52 Encounter for screening for COVID-19; G89.29 Other chronic pain; I10 Essential (primary) hypertension; E78.00 Pure hypercholesterolemia, unspecified; R53.81 Other malaise; K59.00 Constipation, unspecified; Z79.4 Long term (current) use of insulin; Z79.899 Other long term (current) drug therapy
CPT/HCPCS: 36415; 71045; 74177; 80048; 80053; 80061; 81001; 83036; 83605; 83690; 83735; 84443; 85025; 86140; 87040; 87077; 87086; 87154; 87181; 87633; 96365; 96375; 99284; 99285; A9270; J1650; J1815; J7120; Q0162; Q9967; 81003; 83721